=== PATIENT | male | born 1985 | race African-American/Black ===

== ENCOUNTER 2019-01-27 20:03 | Inpatient (IN) | payer MEDICAID, OTHER ==
[~2019-01-27] VITALS: Ht 177.8 cm; Wt 91.6 kg
[~2019-01-27 20:03] MED LIST: ALBU0.0912 IH
--- NOTE | 2019-01-27 20:10 | NUR ---
PATIENT CALLED TO BE TRIAGE NO RESPONSE.
--- NOTE | 2019-01-27 20:15 | NUR ---
SECOND CALL , NO RESPONSE.
[2019-01-27 20:22] VITALS: BP 122/68
--- NOTE | 2019-01-27 20:23 | NUR ---
TO CHAIR E, A/W FOR BED , AMBULATORY
--- NOTE | 2019-01-27 20:25 | NUR ---
PT IS A 33 Y/O MALE WHO PRESENTS TO THE ED C/O SUICIDAL IDEATION. PT STATES THAT SOMEONE HAS BEEN FOLLOWING HIM AROUND X1 MONTH AND HE WANTS TO USE A KNIFE TO STAB AND KILL HIMSELF. PT PLACED ON SI PRECAUTIONS. PT PLACED IN CHAIR AT THIS TIME DUE TO ED CAPACITY. PT WILL GO TO BED 6. PT DENIES CP, SOB, N/V/D. PT AWAKE AND ALERT, RR EVEN/UNLABORED. PT REPOSITIONED FOR COMFORT, PT SITTING IN BED. ER MD DR. ARENAS NOTIFIED. WILL CONTINUE TO MONITOR. ALLERGIC TO [place] DENIES PAST MEDICAL HISTORY
--- NOTE | 2019-01-27 20:54 | NUR ---
PT MOVED TO BED 6. ALL ITEMS REMOVED FROM ROOM. PT PLACED IN A GOWN, SITTER AT BEDSIDE. WARM BLANKET PROVIDED. SECURITY CALLED TO BEDSIDE TO REVIEW ITEMS. PT WAITING TO BE SEEN BY [place].
--- NOTE | 2019-01-27 20:55 | NUR ---
PATIENT MOVED TO ER BED 6.
--- NOTE | 2019-01-27 20:56 | NUR ---
PATIENT REPORT GIVEN TO CHUCK AVINA. TRANSFER OF CARE AT THIS TIME.
--- NOTE | 2019-01-27 21:07 | NUR ---
BELONGINGS SENT DOWN WITH SECURITY.
--- NOTE | 2019-01-27 21:35 | NUR ---
PT AMBULATED TO RR WITH EMT SUPERVISION. URINE SPECIMEN COLLECTED.
--- NOTE | 2019-01-27 22:04 | NUR ---
EMT PERFORMING EKG AT BEDSIDE.
--- NOTE | 2019-01-27 22:09 | NUR ---
LAB AT BEDSIDE.
--- NOTE | 2019-01-27 22:13 | NUR ---
[facility] CALLED TO EVALUATE PATIENT FOR 5150 CRITERIA.
--- NOTE | 2019-01-27 22:24 | NUR ---
[facility] AT BEDSIDE.
[2019-01-27 22:35] LABS: BASOPHILS % (AUTO) 0.5 % (0.0-2.0); EOSINOPHILS # (AUTO) 0.1 K/uL (0-0.4); EOSINOPHILS % (AUTO) 1.5 % (0.0-4.0); HEMATOCRIT 43.3 % (36-52); HEMOGLOBIN 14.4 g/dL (12.0-18.0); LYMPHOCYTES # (AUTO) 1.7 K/uL (2.0-11.5); LYMPHOCYTES % (AUTO) 18.8 % (20.5-51.1); MEAN CORPUSCULAR HEMOGLOBIN 32 pg (27-31); MEAN CORPUSCULAR HGB CONC 33 g/dL (33-37); MEAN CORPUSCULAR VOLUME 96.6 fL (80-94); MONOCYTES # (AUTO) 0.6 K/uL (0.8-1.0); MONOCYTES % (AUTO) 7.3 % (1.7-9.3); NEUTROPHILS # (AUTO) 6.4 K/uL (1.8-7.7); NEUTROPHILS % (AUTO) 71.9 % (42.2-75.2); PLATELET COUNT (AUTO) 257 K/uL (140-450); RED BLOOD CELL COUNT(AUTO) 4.48 MIL/uL (4.20-6.10); RED CELL DISTRIBUTION WIDTH 12.8 % (11.6-13.7); WHITE BLOOD COUNT (AUTO) 8.9 K/uL (4.8-10.8)
[2019-01-27 22:35] LABS: APPEARANCE,URINE CLEAR (CLEAR); BILIRUBIN,URINE 1+ (NEGATIVE); BLOOD, URINE NEGATIVE (NEGATIVE); COLOR,URINE YELLOW (YELLOW); LEUKOCYTE ESTERASE ,URINE TRACE (NEGATIVE); NITRITE, URINE NEGATIVE (NEGATIVE); UGLUCOSE NEGATIVE (NEGATIVE)
[2019-01-27 22:41] LABS: RBC,URINE 0-5 /HPF (0-5)
[2019-01-27 22:42] LABS: ANION GAP 14.2 (8-16); CARBON DIOXIDE 27.6 mmol/L (21-32); CHLORIDE 104 mmol/L (98-107); CREATININE 1.2 mg/dL (0.7-1.3); GFR ARICAN-AMERICAN 89 mL/min (>90); GLUCOSE 110 mg/dL (74-106); POTASSIUM 3.8 mmol/L (3.5-5.1); SODIUM SERUM 142 mmol/L (136-145); UREA NITROGEN, BLOOD 11 mg/dL (7-18)
[2019-01-27 22:47] LABS: BARBITURATE, URINE NEG. ng/ml (NEG <=200); BENZODIAZEPINE, URINE NEG. ng/mL (NEG <=200); CANNABINOID, URINE POS. ng/mL (NEG <=50); COCAINE, URINE NEG. ng/mL (NEG <=300); OPIATE, URINE NEG. ng/mL (NEG <=2000); PHENCYCLIDINE SCREEN,URINE NEG. ng/mL (NEG <=25)
[2019-01-27 22:55] LABS: ALBUMIN 3.3 g/dL (3.4-5.0); ASPARTATE AMINOTRANSFERASE 57 U/L (15-37); THYROID STIMULATING HORMONE 2.19 uIU/mL (0.34-3.74); TOTAL BILIRUBIN 0.5 mg/dL (0.0-1.0)
[2019-01-27 22:56] LABS: ACETAMINOPHEN < 0.5 ug/ml (10-30)
--- NOTE | 2019-01-27 23:30 | NUR ---
OFFERED PT FOOD. PT EATING AT BEDSIDE.
--- NOTE | 2019-01-28 00:30 | NUR ---
PT SLEEPING IN BED WITH VSS. SKIN WARM, DRY. BREATHING EVEN, UNLABORED.
--- NOTE | 2019-01-28 01:08 | NUR ---
PT IS STATING "THEY ARE TRYING TO PUT RAZER BLADES IN MY SANDWICH. THEY HAVE BEEN TRYING TO KILL ME FOR A MONTH NOW." REINFORCED PT HE IS SAFE IN HOSPITAL AND NO ONE IS TRYING TO HURT HIM HERE.
--- NOTE | 2019-01-28 01:11 | NUR ---
PT REQUESTING ANOTHER SANDWICH. INSPECTOR METAL CAN CALLED.
--- NOTE | 2019-01-28 02:54 | NUR ---
PROVIDED PT WITH CHICKEN SANDWICH. PT EATING IN BED WITH SITTER PRESENT.
--- NOTE | 2019-01-28 03:07 | NUR ---
Received intake from [facility], faxed out packet to [facility] Contracted facilities for placement. [facility]/ Ann/ Albina Shultz/ [facility] Lopez/ [facility]/ Travis Acevedo
--- NOTE | 2019-01-28 03:30 | NUR ---
PT SLEEPING IN BED WITH VSS. SKIN WARM, DRY. BREATHING EVEN, UNLABORED.
--- NOTE | 2019-01-28 04:30 | NUR ---
PT SLEEPING IN BED WITH VSS. SKIN WARM, DRY. BREATHING EVEN, UNLABORED.
--- NOTE | 2019-01-28 05:12 | NUR ---
REPORT GIVEN TO TELEPSYCH DOCTOR.
--- NOTE | 2019-01-28 05:30 | NUR ---
TELEPSYCH CONSULT IN PROGRESS.
--- NOTE | 2019-01-28 05:53 | NUR ---
PT SLEEPING IN BED WITH VSS. SKIN WARM, DRY. BREATHING EVEN, UNLABORED.
--- NOTE | 2019-01-28 06:45 | NUR ---
PT SLEEPING IN BED WITH VSS. SKIN WARM, DRY. BREATHING EVEN, UNLABORED.
--- NOTE | 2019-01-28 07:11 | NUR ---
RECEIVED REPORT FROM FABRICE WOODS
[2019-01-28] MEDS ORDERED: ONDANSETRON 4 MG/2 ML VIAL IVP PRN (07:35)
[2019-01-28] MEDS ORDERED: HYDROcodone/APAP 5/325 MG 1 TAB TAB PO PRN (07:35)
[2019-01-28] MEDS ORDERED: ACETAMINOPHEN 325 MG TAB PO PRN (07:35)
[2019-01-28] MEDS ORDERED: ALBUTEROL 0.083% 2.5 MG/3 ML NEBU INH PRN (07:35)
[2019-01-28 08:10] VITALS: BP 124/62
--- NOTE | 2019-01-28 08:10 | NUR ---
Patient will be admitted to care of [facility]. Admited to MED/SURG VIA JANNA W/ VSS. Will go to room 109B. Belongings list completed. Report to FRANKY.
--- NOTE | 2019-01-28 08:10 | NUR ---
REPORT FROM AARON FLEMING NURSE. PATIENT ON MED SURGE WITH STANDARD PRECAUTIONS IN PLACE. PATIENT AAOX4, ON ROOM AIR, NO DISTRESS NOTED, ON 5150 HOLD SINCE PATIENT HAS SUICIDAL IDEATION OF CUTTING HIMSELF. IV ON L AC 20G SALINE LOCK, IV PATENT AND INTACT. PATIENT AMBULATORY, CONTINENT, AND SKIN INTACT. BED IN LOW POSITION, SIDE RAILS X2 UP. SITTER WITH PATIENT
--- NOTE | 2019-01-28 10:00 | NUR ---
PATIENT EATING, NO COMPLAINTS AT THIS TIME
[2019-01-28] MEDS ORDERED: TEMAZEPAM 15 MG CAP PO PRN (10:55)
[2019-01-28] MEDS ORDERED: OLANZapine 5 MG TAB PO SCH (11:00)
--- NOTE | 2019-01-28 12:15 | NUR ---
ADMINISTERED ZYPREXA ONE TIME ORDERED. PATIENT TOLERATED WELL
--- NOTE | 2019-01-28 14:11 | NUR ---
PATIENT SLEEPING AT THIS TIME, ON ROOM AIR, NO DISTRESS NOTED WITH SITTER
--- NOTE | 2019-01-28 15:40 | NUR ---
PATIENT LYING COMFORTABLY IN BED, ON ROOM AIR, NO DISTRESS NOTED. SITTER AT BEDSIDE
[2019-01-28 16:00] VITALS: BP 103/63
--- NOTE | 2019-01-28 17:00 | NUR ---
PATIENT SITTING ON EDGE OF BED, EATING LUNCH
--- NOTE | 2019-01-28 19:15 | NUR ---
RECEIVED BEDSIDE REPORT FROM DAY SHIFT NURSE. PATIENT IS SLEEPING AROUSABLE BY NAME. RESPIRATION EVEN UNLABORED ON ROOM AIR. NO DISTRESS NOTED. SKIN IS WARM AND DRY. IV PATENT AND INTACT. ALL SAFETY MEASURES IN PLACE. PLAN OF CARE WAS DISCUSSED. BED IS AT LOW POSITION. SITTER AT BEDSIDE. WILL CONTINUE TO MONITOR.
--- NOTE | 2019-01-28 19:24 | NUR ---
BEDSIDE REPORT GIVEN TO FABRICE HOFFMAN. PATIENT ENDORSED IN STABLE CONDITION
--- NOTE | 2019-01-28 20:00 | NUR ---
INITIAL ASSESSMENT DONE. VITALS WERE TAKEN. PATIENT IN STABLE CONDITION. NO DISTRESS NOTED. WILL CONTINUE TO MONITOR. SITTER AT BEDSIDE
[2019-01-28] MEDS: LORazepam 2 MG/ML VIAL IVP PRN (20:32)
--- NOTE | 2019-01-28 20:32 | NUR ---
PATIENT IS FEELING ANXIOUS. PRN ATIVAN ADMINISTERED PER ORDER. WILL CONTINUE TO MONITOR.
--- NOTE | 2019-01-28 21:30 | NUR ---
CHECKED PATIENT. PATIENT IN BED RESPIRATION EVEN UNLABORED ON ROOM AIR. NO DISTRESS NOTED. SITTER AT BEDSIDE. WILL CONTINUE TO MONITOR.
--- NOTE | 2019-01-28 22:45 | NUR ---
PATIENT SLEEPING RESPIRATION EVEN UNLABORED ON ROOM AIR. NO DISTRESS NOTED. SITTER AT BEDSIDE. WILL CONTINUE TO MONITOR.
[2019-01-29] VITALS: BP 98/49
--- NOTE | 2019-01-29 | NUR ---
VITALS WERE TAKEN. PATIENT CONDITION STABLE. NO DISTRESS NOTED. WILL CONTINUE TO MONITOR.
--- NOTE | 2019-01-29 02:00 | NUR ---
CHECKED PATIENT. PATIENT SLEEPING RESPIRATION EVEN UNLABORED ON ROOM AIR. NO DISTRESS NOTED. WILL CONTINUE TO MONITOR.
[2019-01-29] MEDS: LORazepam 2 MG/ML VIAL IVP PRN (03:37)
--- NOTE | 2019-01-29 03:45 | NUR ---
PATIENT IV INFILTRATED. D/C IV NO ACTIVE BLEEDING NOTICE. IV CANNULA INTACT. INSERTED NEW IV TO THE LEFT FOREARM 22G AND TOLERATED WELL. WILL CONTINUE TO MONITOR.
--- NOTE | 2019-01-29 04:30 | NUR ---
CHECKED PATIENT. PATIENT SLEEPING RESPIRATION EVEN UNLABORED ON ROOM AIR. NO DISTRESS NOTED. WILL CONTINUE TO MONITOR.
--- NOTE | 2019-01-29 07:20 | NUR ---
ENDORSED PATIENT TO DAY SHIFT NURSE FOR CONTINUITY OF CARE. PATIENT IN STABLE CONDITION.
--- NOTE | 2019-01-29 07:21 | NUR ---
RECEIVED BEDSIDE REPORT FROM BOLOGNA LACER NURSE. PATIENT IS SLEEPING. NO SIGNS OF DISTRESS ON RA. SKIN IS INTACT. IV ON L FA 22G SL. CLEAN, DRY AND INTACT. AMBULATORY. CONTINENT. DX SI, 1:1 SITTER AT BEDSIDE. BED IN LOW POSITION. WILL CONTINUE TO MONITOR THE PATIENT.
[2019-01-29 08:00] VITALS: BP 100/48
[2019-01-29] MEDS ORDERED: OLANZapine 5 MG TAB PO SCH ×2 (09:00→09:45)
--- NOTE | 2019-01-29 09:00 | NUR ---
PATIENT IS SLEEPING. NO SIGNS OF DISTRESS. WILL CONTINUE TO MONITOR THE PATIENT.
[2019-01-29] MEDS ORDERED: ESCITALOPRAM 20 MG TAB PO SCH (09:45)
--- NOTE | 2019-01-29 09:48 | NUR ---
PATIENT HAS BEEN SCREENED AND CATEGORIZED LOW NUTRITION RISK. PATIENT WILL BE SEEN WITHIN 7 DAYS OF ADMISSION. 02/03/[address]
--- NOTE | 2019-01-29 10:11 | NUR ---
ADMINISTERED MEDS. EDUCATED ON MEDS. PATIENT TOLERATED WELL. NO COMPLAINTS AT THIS TIME. WILL CONTINUE TO MONITOR THE PATIENT
--- NOTE | 2019-01-29 12:09 | NUR ---
PATIENT SLEEPING. WILL CONTINUE TO MONITOR THE PATIENT
--- NOTE | 2019-01-29 13:03 | NUR ---
PATIENT IS SLEEPING. NO SIGNS OF DISTRESS. WILL CONTINUE TO MONITOR THE PATIENT
--- NOTE | 2019-01-29 14:09 | NUR ---
PATIENT IS SLEEPING. WILL CONTINUE TO MONITOR 1:1 SITTER AT BEDSIDE
--- NOTE | 2019-01-29 15:40 | NUR ---
PATIENT IS SLEEPING. NO SIGNS OF DISTRESS. 1:1 SITTER AT BEDSIDE
[2019-01-29 16:00] VITALS: BP 109/65
--- NOTE | 2019-01-29 17:46 | NUR ---
PATIENT IS SLEEPING. NO SIGNS OF DISTRESS. WILL CONTINUE TO MONITOR. 1:1 SITTER
--- NOTE | 2019-01-29 19:05 | NUR ---
RECEIVED BEDSIDE REPORT FROM DAY SHIFT NURSE. PATIENT IS AWAKE, ALERT, AND COOPERATIVE. RESPIRATION EVEN UNLABORED ON ROOM AIR. SKIN IS WARM AND DRY. IV PATENT AND INTACT. DENIES PAIN. PLAN OF CARE WAS DISCUSSED. ALL SAFETY MEASURES IN PLACE. BED IS AT LOW POSITION. SITTER AT BEDSIDE. WILL CONTINUE TO MONITOR
--- NOTE | 2019-01-29 19:05 | NUR ---
GAVE BEDSIDE REPORT TO ASSISTANT HEAD CASHIER NURSE. PATIENT ENDORSED IN STABLE CONDITION
--- NOTE | 2019-01-29 20:00 | NUR ---
INITIAL ASSESSMENT DONE. VITALS WERE TAKEN. PATIENT CONDITION STABLE. NO DISTRESS NOTED. WILL CONTINUE TO MONITOR.
[2019-01-29] MEDS: OLANZapine 5 MG TAB PO SCH (20:31)
--- NOTE | 2019-01-29 21:00 | NUR ---
ALL SCHEDULED MEDS WERE GIVEN PER ORDER. NO ASE NOTED. WILL CONTINUE TO MONITOR.
--- NOTE | 2019-01-29 23:00 | NUR ---
CHECKED PATIENT. PATIENT SLEEPING RESPIRATION EVEN UNLABORED ON ROOM AIR. NO DISTRESS NOTED. SITTER AT BEDSIDE. WILL CONTINUE TO MONITOR.
[2019-01-30] VITALS: BP 102/50
--- NOTE | 2019-01-30 | NUR ---
VITALS WERE TAKEN. PATIENT IN STABLE CONDITION. NO DISTRESS NOTED. DENIES PAIN. SITTER AT BEDSIDE. WILL CONTINUE TO MONITOR.
--- NOTE | 2019-01-30 02:00 | NUR ---
SITTER AT BEDSIDE.
--- NOTE | 2019-01-30 02:00 | NUR ---
CHECKED PATIENT. PATIENT SLEEPING RESPIRATION EVEN UNLABORED ON ROOM AIR. NO DISTRESS NOTED. WILL CONTINUE TO MONITOR.
--- NOTE | 2019-01-30 04:00 | NUR ---
CHECKED PATIENT. PATIENT SLEEPING RESPIRATION EVEN UNLABORED ON ROOM AIR. NO DISTRESS NOTED. SITTER AT BEDSIDE WILL CONTINUE TO MONITOR.
--- NOTE | 2019-01-30 07:12 | NUR ---
ENDORSED PATIENT TO DAY SHIFT NURSE FOR CONTINUITY OF CARE. PATIENT IN STABLE CONDITION
--- NOTE | 2019-01-30 07:20 | NUR ---
RECEIVED REPORT FROM SUPERVISOR POULTRY HATCHERY. PT AAOX4, LYING IN BED, AROUSABLE TO NAME. PT STATES "YES" WHEN ASKED IF HE STILL FEELS LIKE HURTING HIMSELF. RESPIRATIONS EVEN AND UNLABORED ON RA. NO C/O PAIN AT THIS TIME. BOWEL SOUNDS ACTIVE, LBM 01/26. IV FOUND ON FLOOR, PT STATES "IT WAS HURTING ME LAST NIGHT". WILL ATTEMPT TO REINSERT IV LATER PRN. SKIN COLOR APPROPRIATE TO ETHNICITY, WARM TO TOUCH, SKIN IS INTACT. REVIEWED POC WITH PT, PT VERBALIZED UNDERSTANDING. WILL CONTINUE TO MONITOR.
[2019-01-30 08:00] VITALS: BP 104/68
[2019-01-30] MEDS: ESCITALOPRAM 20 MG TAB PO SCH (09:52)
[2019-01-30] MEDS: OLANZapine 5 MG TAB PO SCH ×2 (09:53→21:13)
--- NOTE | 2019-01-30 12:15 | NUR ---
PT IS SITTING UP EATING LUNCH AT THIS TIME. NO C/O PAIN, RESPIRATIONS EVEN AND UNLABORED ON RA.
[2019-01-30 16:00] VITALS: BP 109/57
--- NOTE | 2019-01-30 16:00 | NUR ---
PT STILL REPORTS THAT HE WANTS TO HURT HIMSELF SAYING "I WANT TO STAB MYSELF WITH A KNIFE IF I GET A HOLD OF ONE." SPENT TIME WITH PT, REORIENTED AND CLARIFIED QUESTIONS. NO C/O PAIN AT THIS TIME.
--- NOTE | 2019-01-30 16:17 | NUR ---
Called the following facilities with no bed availability: [facility], [facility], s[facility]w [facility], [facility]
--- NOTE | 2019-01-30 17:00 | NUR ---
PT ON ONE-ON-ONE FOR SI. PT IS TAKING A SHOWER AT THIS TIME. WILL CONTINUE TO MONITOR.
--- NOTE | 2019-01-30 19:39 | NUR ---
ENDORSED PT TO MARKET DEVELOPMENT ANALYST NURSE. NO SIGNS OF DISTRESS AT THIS TIME.
--- NOTE | 2019-01-30 19:40 | NUR ---
RECEIVED PT FROM DAY SHIFT NURSE, SITTER ALL TIMES PT IS AAOX3 COOPERATIVE STILL, NOT IV ACCESS INITIAL ASSESSMENT DONE
--- NOTE | 2019-01-30 20:00 | NUR ---
A NEW IV ACCESS INSERTED ON LEFT FA GAUGE # 22
[2019-01-30] MEDS: LORazepam 2 MG/ML VIAL IVP PRN (21:25)
--- NOTE | 2019-01-30 21:25 | NUR ---
PT VERY ANXIOUS MEDIC GIVEN ORDER , AND WILL BE [id number] SITTER AT BED SIDE ALL TIMES
--- NOTE | 2019-01-30 23:00 | NUR ---
PT SLEEPING WELL NOT DISTRESS NOTED SITTER AT SIDE
[2019-01-31] VITALS: BP 105/53
--- NOTE | 2019-01-31 01:59 | NUR ---
PT AWAKE , VOIDING WELL SITTER AT BED SIDE NOT DISTRESS NOTED
--- NOTE | 2019-01-31 03:00 | NUR ---
PT ON CLOSE MONITORING, SLEEPING AT THIS TIME SITTER AT BED SIDE
--- NOTE | 2019-01-31 04:00 | NUR ---
SPONGE BATH GIVEN LINEN CHANGED NOT DISTRESS NOTED SITTER AT BED SIDE
--- NOTE | 2019-01-31 06:19 | NUR ---
PT SLEEPING QUIET NOT DISTRESS SEEN AT THIS TIME SITTER AT BESIDE, PT WILL BE ENDORSED TO DAY SHIFT NURSE FOR CONTINUITY OF CARE
--- NOTE | 2019-01-31 07:22 | NUR ---
RECEIVED BED SIDE REPORT FROM SILK SCREEN PAINTER RN RADHIKA. PT IN STABLE CONDITION, AWAKE/ALERT X4, APPEARS IN NO RESP DISTRESS ON RA, IN NO PAIN. WILL LEFT FOREAARM 22G SALINE LOCK. SKIN INTACT, WILL CONTINUE TO MONITOR, ROOM SAFE.
[2019-01-31 08:00] VITALS: BP 97/53
[2019-01-31] MEDS: OLANZapine 5 MG TAB PO SCH ×2 (09:12→20:42)
[2019-01-31] MEDS: ESCITALOPRAM 20 MG TAB PO SCH (09:13)
--- NOTE | 2019-01-31 09:39 | NUR ---
FAXED 7274 RENEWAL TO [facility] TO LOOK FOR INPATIENT PSYCH FACILITY
--- NOTE | 2019-01-31 14:30 | NUR ---
GAVE BED SIDE REPORT TO FABRICE WHEATLEY. PT RESTING COMFORTABLY, SITTER AT BEDSIDE, ROOM CHECKED AND SAFE, WILL CONTINUE TO MONITOR
--- NOTE | 2019-01-31 14:30 | NUR ---
RECEIVED BEDSIDE REPORT FROM MEKA AVINA FOR CONTINUITY OF CARE. PATIENT IS RESTING ON BED AT THIS TIME. EVEN AND UNLABORED CHEST RISES NOTED. ON RA. NO SIGNS OF DISTRESS NOTED. IV ON LFA 22, CLEAN AND INTACT, SL. SKIN INTACT AND CLEAN. PATIENT IS ABLE TO AMBULATE AND CONTINENT. SAFETY MEASURES IN PLACE. SITTER 1:1 BY BEDSIDE. BED IN LOW POSITION.
--- NOTE | 2019-01-31 15:46 | NUR ---
PATIENT IS RESTING ON BED AT THIS TIME. DENIED OF SUICIDAL IDEATION. NO SIGNS OF DISTRESS NOTED.SAFETY MEASURES IN PLACE. BED IN LOW POSITION AND 1:1 SITTER BY BEDSIDE.
[2019-01-31 16:00] VITALS: BP 111/53
--- NOTE | 2019-01-31 17:25 | NUR ---
PATIENT AWAKE AND SITTING UP ON BED. DENIED OF SUICIDAL IDEATION. NO SIGNS OF DISTRESS NOTES. SAFETY MEASURES IN PLACE. BED IN LOW POSITION AND 1:1 SITTER BY BEDSIDE.
--- NOTE | 2019-01-31 19:15 | NUR ---
ENDORSED PATIENT AT BEDSIDE TO TRANSPORTATION BROKER NURSE FOR CONTINUITY OF CARE. PATIENT AWAKE AND RESTING ON BED AT THIS TIME. 1:1 SITTER BY BEDSIDE. PATIENT IS IN STABLE CONDITION.
--- NOTE | 2019-01-31 19:16 | NUR ---
RECD. RESTING IN BED, AWAKE, A/OX4. RESPIRATION EVEN AND UNLABORED. IV SALINE LOCK AT THE LEFT FOREARM G22, PATENT AND INTACT. STATED HE STILL HAS THOUGHTS OF HURTING HIMSELF BUT IS NOT HEARING VOICES. PLAN OF CARE DISCUSSED. VERBALIZED UNDERSTANDING. WANTS TO HAVE A SLEEPING PILL TONIGHT, WILL MEDICATE ORDERED. DENIES PAIN 010. 1:1 SITTER NEAR DOOR MONITORING PATIENT.
--- NOTE | 2019-01-31 19:16 | NUR ---
Patient's Plan of Care was discussed and reviewed with HAT BINDER: COREY. PT WITH 1:1 SITTER. WILL ROUND FREQUENTLY.
--- NOTE | 2019-01-31 20:00 | NUR ---
RESTING IN BED, NO AGITATION NOTED.
--- NOTE | 2019-01-31 20:41 | NUR ---
DUE MEDICATIONS FOR THE NIGHT GIVEN. NO COMPLAINT OF PAIN 0/10.
[2019-01-31] MEDS ORDERED: diphenhydrAMINE 50 MG CAP PO SCH (21:00)
[2019-02-01] VITALS: BP 115/55
--- NOTE | 2019-02-01 | NUR ---
SLEEPING COMFORTABLY IN BED.
--- NOTE | 2019-02-01 04:00 | NUR ---
AMBULATED TO BR TO VOID X2. SAFETY MAINTAINED.
--- NOTE | 2019-02-01 07:12 | NUR ---
ABLE TO SLEEP WELL. CONDITION REMAIN STABLE. WILL ENDORSE TO AM NURSE FOR CONTINUITY OF CARE.
--- NOTE | 2019-02-01 07:15 | NUR ---
RECEIVED BEDSIDE REPORT FROM SANITIZER NURSE. PATIENT IS AWAKE AND RESTING ON BED AT THIS TIME. RESPIRATION EVEN AND UNLABORED ON RA. DENIED OF SUICIDAL IDEATION AND HEARING VOICE. NO SIGNS OF DISTRESS NOTED. IV ON LFA 22, CLEAN AND DRY, SL. SKIN CLEAN AND DRY. PATIENT IS CONTINENT AND ABLE TO AMBULATE WITH STEADY GAIT. DISCUSSED PLAN OF CARE WITH PATIENT AND PATIENT VERBALIZED UNDERSTANDING.SAFETY MEASURES IN PLACE. BED IN LOW POSITION AND 1:1 SITTER BY BEDSIDE.
[2019-02-01 08:00] VITALS: BP 106/52
[2019-02-01] MEDS: OLANZapine 5 MG TAB PO SCH (09:15)
[2019-02-01] MEDS: ESCITALOPRAM 20 MG TAB PO SCH (09:15)
--- NOTE | 2019-02-01 09:16 | NUR ---
ADMINISTERED MEDS PER MD ORDER, PATIENT TOLERATED WELL. PATIENT IS RESTING ON BED AT THIS TIME. DENIED OF SUICIDAL IDEATION AND HEARING VOICE. NO SIGNS OF DISTRESS NOTED. SAFETY MEASURES IN PLACE. BED IN LOW POSITION AND 1:1 SITTER BY BEDSIDE.
--- NOTE | 2019-02-01 10:09 | NUR ---
COLLECTED URINE SPECIMEN VIA VOID PER ORDER AND DELIVERED IT TO LAB. Addendum: 02/01/19 at 1138 by Lala Keith RN WRONG PATIENT
--- NOTE | 2019-02-01 10:40 | NUR ---
CONTACTED [facility] [phone] AND SPOKE TO ISABELLA, SHE STATED SHE WILL FOLLOW UP.
--- NOTE | 2019-02-01 11:39 | NUR ---
PATIENT AWAKE AND RESTING ON BED AT THIS TIME. RESPIRATION EVEN AND UNLABORED ON RA. PATIENT DENIED SUICIDAL IDEATION AND HEARING VOICE. NO SIGNS OF DISTRESS NOTED. SAFETY MEASURES IN PLACE. BED IN LOW POSITION AND 1:1 SITTER BY BEDSIDE.
--- NOTE | 2019-02-01 12:19 | NUR ---
The following facilities were followed up with and no beds available at this time: [facility], [facility], [facility], [facility], [facility], [place]. [facility] will continue to follow up.
--- NOTE | 2019-02-01 13:15 | NUR ---
PATIENT IS RESTING ON BED AT THIS TIME. DENIED OF SUICIDAL IDEATION AND HEARING VOICE. NO SIGNS OF DISTRESS NOTED. SAFETY MEASURES IN PLACE. BED IN LOW POSITION AND 1:1 SITTER BY BEDSIDE.
--- NOTE | 2019-02-01 15:20 | NUR ---
PATIENT IS AWAKE AND RESTING ON BED AT THIS TIME. DENIED OF SUICIDAL IDEATION AND HEARING VOICE. NO SIGNS OF DISTRESS NOTED. SAFETY MEASURES IN PLACE. BED IN LOW POSITION AND 1:1 SITTER BY BEDSIDE.
[2019-02-01 16:00] VITALS: BP 101/54
--- NOTE | 2019-02-01 17:09 | NUR ---
[facility] s[facility] beds [place] s/w Ruthann no beds [facility] s/w Yud[facility] no beds [facility] s/w Don no beds [facility] s/w Saul lowe faxed for review
--- NOTE | 2019-02-01 17:45 | NUR ---
AWAKE AND SITTING UP ON BED AT THIS TIME. DENIED OF SUICIDAL IDEATION AND HEARING VOICE. NO SIGNS OF DISTRESS NOTED. SAFETY MEASURES IN PLACE. BED IN LOW POSITION AND 1:1 SITTER BY BEDSIDE.
--- NOTE | 2019-02-01 19:15 | NUR ---
ENDORSED PATIENT AT BEDSIDE TO HAIRCUTTER NURSE FOR CONTINUITY OF CARE. PATIENT AWAKE AND IN STABLE CONDITION. 1:1 SITTER AT BEDSIDE.
--- NOTE | 2019-02-01 19:16 | NUR ---
Received endorsement from AM shift RN; patient A/Ox4, able to make needs known, [place]ese speaking, ambulatory. Introduced self. No SOB or distress noted, on room air. No IV site noted. Skin intact. Bed in the lowest position, call light within reach. Initial assessment done. Will continue to monitor.
--- NOTE | 2019-02-01 19:20 | NUR ---
Dr. Garza at bedside consulting patient at this time; patient medically cleared to be discharged to home.
[2019-02-01 19:59] VITALS: BP 137/74
--- NOTE | 2019-02-01 20:29 | NUR ---
Patient discharged to home. ID band removed. Discharge packet signed and copy given to patient. Patient teaching given about follow-up check up. Patient able to ambulate from unit without assistance. Patient stable upon discharge. Addendum: 02/01/19 at 2037 by Tim Lake RN Vitals stable upon discharge.
[2019-02-01] MEDS ORDERED: OLANZapine 5 MG TAB PO SCH (21:00)
== END 2019-02-01 20:29 | disposition home or self-care (01) | DRG 760 ==
LOC: MED 20:03 → MTU 01-28 07:35
PROVIDERS: ADMIT Internal Medicine Pulmonary Disease; ATTEND Internal Medicine Pulmonary Disease
DX: F22 Delusional disorders (principal); F20.9 Schizophrenia, unspecified; F29 Unspecified psychosis not due to a substance or known physiological condition; F32.9 Major depressive disorder, single episode, unspecified; F41.9 Anxiety disorder, unspecified; J45.909 Unspecified asthma, uncomplicated; F12.99 Cannabis use, unspecified with unspecified cannabis-induced disorder; F15.99 Other stimulant use, unspecified with unspecified stimulant-induced disorder
CPT/HCPCS: 36415; 80053; 80305; 81001; 84443; 85025; 87081; 87086; 99285; G0480; G0482; J2060; Q0163

== ENCOUNTER 2019-08-04 17:57 | Inpatient (IN) | payer OTHER ==
[~2019-08-04] VITALS: Ht 177.8 cm; Wt 90.7 kg
[2019-08-04 18:02] VITALS: BP 136/59
--- NOTE | 2019-08-04 18:17 | NUR ---
PT AMBULATED TO ED BED 5. ILYA SCIENCE PROFESSOR AND MADE AWARE OF PT STATUS
--- NOTE | 2019-08-04 18:26 | NUR ---
SECURITY CALLED TO BEDSIDE, ALL BELONGINGS INVENTORIED AND PLACED IN A BELONGINGS BAG AND GIVEN TO ANTOINETTE WITH SECURITY. COPY OF BELONGINGS LIST GIVEN TO .
--- NOTE | 2019-08-04 18:32 | NUR ---
EMT AT BEDSIDE
--- NOTE | 2019-08-04 18:32 | NUR ---
BARREL RAISER AT BEDSIDE FOR BLOOD DRAW
--- NOTE | 2019-08-04 18:33 | NUR ---
PT STATED "THERE ARE PEOPLE AFTER ME TRYING TO KILL ME, THE FB IS TRYING TO KILL ME, I'M RUNNING FROM THEM, BUT I WANT TO LIVE BUT I DON'T KNOW WHY I SHOULD LIVE, THEY'RE AFTER ME." PT WITH EXCESSIVE SPEECH AND TALKING TO SELF. DENIES ATTEMPTING TO PHYSICAL HURT SELF. PT EPISODE OF VISUAL HALLUCINATION AT THIS TIME. ALSO STATES "CLOSE THE CURTAINS, I DON'T WANT TO SEE WHITE PEOPLE, THEY'RE ALL IN IT TOGETHER TRYING TO KILL ME". PT STATES HE LIVES AT HOME/HOUSE WITH MOTHER. PMH; SCHIZOPRENIA, PARANIOD, DIDN'T TAKE ZYPREXA FOR 1 MONTH RX-ZYPREXA, BENADRYL Addendum: 08/04/19 at 1840 by BRENT DENIES DRUGS/ETOH USE. UNABLE TO VERBALIZE SPECIFIC PLANS TO HURT SELF
[2019-08-04 18:40] LABS: BASOPHILS # (AUTO) 0.1 K/uL (0.00-0.22); BASOPHILS % (AUTO) 0.7 % (0.0-2.0); EOSINOPHILS # (AUTO) 0.2 K/uL (0-0.4); EOSINOPHILS % (AUTO) 2.8 % (0.0-4.0); HEMATOCRIT 43.9 % (36-52); HEMOGLOBIN 14.5 g/dL (12.0-18.0); LYMPHOCYTES # (AUTO) 1.5 K/uL (2.0-11.5); LYMPHOCYTES % (AUTO) 18.3 % (20.5-51.1); MEAN CORPUSCULAR HEMOGLOBIN 32 pg (27-31); MEAN CORPUSCULAR HGB CONC 33 g/dL (33-37); MEAN CORPUSCULAR VOLUME 96.5 fL (80-94); MONOCYTES # (AUTO) 0.6 K/uL (0.8-1.0); MONOCYTES % (AUTO) 6.9 % (1.7-9.3); NEUTROPHILS % (AUTO) 71.3 % (42.2-75.2); PLATELET COUNT (AUTO) 234 K/uL (140-450); RED BLOOD CELL COUNT(AUTO) 4.55 MIL/uL (4.20-6.10); RED CELL DISTRIBUTION WIDTH 12.5 % (11.6-13.7); WHITE BLOOD COUNT (AUTO) 8.4 K/uL (4.8-10.8)
--- NOTE | 2019-08-04 18:44 | NUR ---
ASKED PT TO PROVIDE URINE SAMPLE
--- NOTE | 2019-08-04 18:54 | NUR ---
PT RESTING IN BED, WITH PERIODS OF RESTLESSNESS & MUMBLING TO SELF.
[2019-08-04 18:57] LABS: ALBUMIN 3.5 g/dL (3.4-5.0); ANION GAP 13.5 (8-16); ASPARTATE AMINOTRANSFERASE 68 U/L (15-37); CARBON DIOXIDE 27.8 mmol/L (21-32); CHLORIDE 104 mmol/L (98-107); CREATININE 1.3 mg/dL (0.7-1.3); GFR ARICAN-AMERICAN 80 mL/min (>90); GLUCOSE 150 mg/dL (74-106); POTASSIUM 3.3 mmol/L (3.5-5.1); SODIUM SERUM 142 mmol/L (136-145); TOTAL BILIRUBIN 0.4 mg/dL (0.0-1.0); UREA NITROGEN, BLOOD 6 mg/dL (7-18)
[2019-08-04 19:00] LABS: ACETAMINOPHEN < 0.5 ug/ml (10-30); SALICYLATE < 2.8 mg/dL (2.8-20.0)
--- NOTE | 2019-08-04 19:41 | NUR ---
PT RESTING IN BED, RESPIRATIONS EVEN AND UNLABORED, NO SIGNS OF DISTRESS.
--- NOTE | 2019-08-04 20:19 | NUR ---
CALLED & ASKED LAB TO [facility]NER URINE SAMPLES
--- NOTE | 2019-08-04 20:20 | NUR ---
PROVIDED PT WITH SANDWICH AND JUICE
[2019-08-04] MEDS ORDERED: POTASSIUM CHLORIDE 10 MEQ TABER PO ONE (20:30)
--- NOTE | 2019-08-04 20:53 | NUR ---
LAB CONFIRMED THEY HAVE URINE SAMPLE AND WILL PROCESS UDS
[2019-08-04 21:21] LABS: BARBITURATE, URINE NEG. ng/ml (NEG <=200); BENZODIAZEPINE, URINE NEG. ng/mL (NEG <=200); CANNABINOID, URINE POS. ng/mL (NEG <=50); COCAINE, URINE NEG. ng/mL (NEG <=300); OPIATE, URINE NEG. ng/mL (NEG <=2000); PHENCYCLIDINE SCREEN,URINE NEG. ng/mL (NEG <=25)
--- NOTE | 2019-08-04 22:15 | NUR ---
PT SPEAKING WITH TELEPSYCH MD BARBOZA AT THIS TIME.
--- NOTE | 2019-08-04 23:31 | NUR ---
PT RESTING IN BED, RESPIRATIONS EVEN AND UNLABORED
--- NOTE | 2019-08-05 01:20 | NUR ---
REPORT RECIEVED FROM FABRICE ALVAREZ. ASSUMED CARE AT THIS TIME. PT ASLEEP AT THIS TIME. VISIBLE CHEST RISE AND FALL NOTED. 1:1 MONITORING AT BEDSIDE. SAFETY PRECAUTIONS IN PLACE. WILL CONTINUE TO MONITOR.
--- NOTE | 2019-08-05 01:30 | NUR ---
Spoke with the call center for telepsych requesting a call from the doctor for clarification on the hold. will await call back.
--- NOTE | 2019-08-05 02:00 | NUR ---
still awaiting call, called mayra michael to write recommended 5150 hold for GD.
--- NOTE | 2019-08-05 02:00 | NUR ---
PROVIDED PT WITH MEAL, JUICE, AND BLANKET. ALL NEEDS MET AT THIS TIME.
--- NOTE | 2019-08-05 02:30 | NUR ---
RECIEVED TELEPSYCH REPORT BY FAX. RECOMMENDING 5724 HOLD FOR GRAVELY DISABLED.
--- NOTE | 2019-08-05 02:55 | NUR ---
CALLED [facility] TO WRITE 9930 HOLD. OFFICER TO BE SENT OUT WHEN AVAILABLE
--- NOTE | 2019-08-05 03:00 | NUR ---
[facility] AT BEDSIDE.
--- NOTE | 2019-08-05 03:02 | NUR ---
S/W OFFICER EDUARD [place] WHO STATED HE WOULDNT BE ABLE TO WRITE A 5150 HOLD BECAUSE PT IS CURRENTLY DENYING SI/HI.
--- NOTE | 2019-08-05 03:10 | NUR ---
PT HEARD SCREAMING PROFANITY AND BEING VERBALLY AGGRESSIVE, PT STATES "FUCK THE POLICE. I DONT WANT TO TALK TO THEM. I DONT NEED TO BE HERE. FUCK ALL OF YOU. I WILL FIGHT ALL OF YOU." PT INFORMED THAT THIS BEHAVIOR IS NOT ACCEPTABLE AND HE WAS TO CALM DOWN. PT QUIETED DOWN.
--- NOTE | 2019-08-05 03:56 | NUR ---
PT AMBULATED TO RESTROOM, STEADY GAIT.
--- NOTE | 2019-08-05 04:25 | NUR ---
spoke with tele psych doctor regarding clarification on hold recommendation, stated he would send over an addendum.
--- NOTE | 2019-08-05 04:38 | NUR ---
[facility] called to write for GD 5150 hold.
--- NOTE | 2019-08-05 04:45 | NUR ---
PT SEEN WITH EYES CLOSED. VISIBLE CHEST RISE AND FALL NOTED. SAFETY PRECAUTIONS IN PLACE. WILL CONTINUE TO MONITOR.
--- NOTE | 2019-08-05 05:30 | NUR ---
OFFICER EDUARD [place]ES AT BEDSIDE.
--- NOTE | 2019-08-05 05:36 | NUR ---
[address]
--- NOTE | 2019-08-05 06:40 | NUR ---
TAKEN TO FLOOR IN WHEELCHAIR BY RN.
--- NOTE | 2019-08-05 06:47 | NUR ---
Patient will be admitted to care of DR. LOPEZ. Admited to [facility]. Will go to room 109B Belongings list completed. Report to FABRICE STERN. TRANSFER OF CARE AT THIS TIME
[2019-08-05] MEDS ORDERED: ACETAMINOPHEN 650 MG SUPP RC PRN (06:55)
[2019-08-05] MEDS ORDERED: HYDROcodone/APAP 5/325 MG 1 TAB TAB PO PRN ×2 (06:55)
[2019-08-05] MEDS ORDERED: LORazepam 2 MG/ML VIAL IVP PRN (06:55)
[2019-08-05] MEDS ORDERED: BISACODYL 10 MG SUPP RC PRN (06:55)
[2019-08-05] MEDS ORDERED: MORPHINE SULFATE 2 MG/ML SYR IVP PRN (06:55)
[2019-08-05] MEDS ORDERED: ZOLPIDEM 5 MG TAB PO PRN (06:55)
[2019-08-05] MEDS ORDERED: ALUMINUM HYD/MAG/SIMETHICONE 30 ML UDC PO PRN (06:55)
[2019-08-05] MEDS ORDERED: ALBUTEROL 0.083% 2.5 MG/3 ML NEBU INH PRN (06:55)
[2019-08-05] MEDS ORDERED: MAGNESIUM OXIDE 400 MG TAB PO PRN (06:55)
[2019-08-05] MEDS ORDERED: POTASSIUM CHLORIDE 10 MEQ TABER PO PRN (06:55)
[2019-08-05] MEDS ORDERED: SODIUM PHOSPHATE 118 ML ENEM RC PRN (06:55)
[2019-08-05] MEDS ORDERED: diphenhydrAMINE 50 MG/ML VIAL IVP PRN (06:55)
[2019-08-05] MEDS ORDERED: DOCUSATE SODIUM 250 MG GELCAP PO PRN (06:55)
[2019-08-05] MEDS ORDERED: IPRATROPIUM 0.02% 0.5 MG/2.5 ML NEBU INH PRN (06:55)
[2019-08-05] MEDS ORDERED: cloNIDine 0.1 MG TAB PO PRN (06:55)
[2019-08-05] MEDS ORDERED: guaiFENesin DM 200/20 MG-10 ML 10 ML UDC PO PRN (06:55)
[2019-08-05] MEDS ORDERED: ACETAMINOPHEN 325 MG TAB PO PRN (06:55)
[2019-08-05] MEDS ORDERED: MAG SULF 2000 MG/WATER PREMIX 50 ML IV PRN (06:55)
[2019-08-05] MEDS ORDERED: ONDANSETRON 4 MG/2 ML VIAL IVP PRN (06:55)
--- NOTE | 2019-08-05 07:16 | NUR ---
RECEIVED REPORT FROM CIRCULAR RIPSAW OPERATOR NURSE. ASSESS PT'S V/S. PT IS STABLE. NO SIGNS OF DISTRESS. MRSA SWAB DONE. PT HAS SALINE LOCK ON LEFT ARM. SITTER ON BEDSIDE. BED ON LOW, SIDERAILS UP. WILL CONTINUE TO MONITOR
[2019-08-05 08:00] VITALS: BP 101/41
--- NOTE | 2019-08-05 10:00 | NUR ---
Spoke to Dr Garza on the phone and confirmed he will be seeing pt today for psych eval.
--- NOTE | 2019-08-05 12:05 | NUR ---
FREQUENT ROUNDINGS DONE. PT. IS SLEEPING, NO SIGNS OF DISTRESS. SITTER AT BEDSIDE. WILL CONTINUE TO MONITOR
--- NOTE | 2019-08-05 12:18 | NUR ---
PATIENT HAS BEEN SCREENED AND CATEGORIZED LOW NUTRITION RISK. PATIENT WILL BE SEEN WITHIN 7 DAYS OF ADMISSION. 08/12/2019 VIRGINIE PRECIADO MBA, RD
--- NOTE | 2019-08-05 15:00 | NUR ---
FREQUENT ROUNDING DONE. PT IS STABLE. SITTER AT BEDSIDE. PT HAS NO SIGNS OF DISTRESS. WILL CONTINUE TO MONITOR
[2019-08-05 16:00] VITALS: BP 114/60
--- NOTE | 2019-08-05 19:00 | NUR ---
REPORT GIVEN TO ENGRAVER STEEL PLATE NURSE FOR CONTINUITY OF CARE. PT IS STABLE, NO SIGNS OF DISTRESS.
--- NOTE | 2019-08-05 19:01 | NUR ---
RECD. RESTING IN BED, SLEEPING BUT EASILY AROUSABLE. RESPIRATION EVEN AND UNLABORED. IV SALINE LOCK AT THE LEFT AC G20, PATENT AND INTACT. BED IN THE LOWEST POSITION, SIDE RAILS UP. ON 1:1 SITTER TO ENSURE SAFETY. WILL CONTINUE TO MONITOR PATIENT BEING THE NURSE SITTER FOR THIS SHIFT.
--- NOTE | 2019-08-05 20:00 | NUR ---
WAKEN UP, A/OX4. INQUIRED IF HE STILL HAS THOUGHTS OF HURTING SELF, STATED YES. NODS HEAD WHEN ASKED IF HE IS HEARING VOICES. WENT BACK TO SLEEP.
--- NOTE | 2019-08-05 21:30 | NUR ---
SANDWICH REQUESTED GIVEN, WENT BACK TO SLEEP AFTER EATING.
--- NOTE | 2019-08-05 23:00 | NUR ---
STILL SLEEPING COMFORTABLY IN BED.
[2019-08-06] VITALS: BP 111/63
--- NOTE | 2019-08-06 01:00 | NUR ---
AWAKE, TALKING TO SELF, SITS ON THE BED AND WENT TO BR TO VOID. STATED HE DOES NOT LIKE HIS BED. WANTS TO TRANSFER TO THE OTHER BED, EXPLAINED THAT BED IS FOR ANOTHER PATIENT. BEDDINGS CHANGED REQUESTED, NOTED SOME LINENS WET, STATED I SWEAT A LOT. STILL TELLING THAT THE POLICE IS AFTER HIM AND WANTS TO HARM HIM.
--- NOTE | 2019-08-06 01:30 | NUR ---
NO MORE IV LINE, WHEN ASKED WHERE IS HIS IV SALINE LOCK STATED "I HAVE IT BEFORE BUT IT BOTHERS ME AND I DON'T KNOW WHERE IS IT NOW." REFUSED FOR ANOTHER IV LINE TO BE INSERTED. WENT BACK TO SLEEP.
--- NOTE | 2019-08-06 03:30 | NUR ---
STILL SLEEPING COMFORTABLY IN BED.
--- NOTE | 2019-08-06 06:00 | NUR ---
AWAKE, TALKING TO SELF. WENT BACK TO SLEEP AFTER FEW MINUTES. NO AGITATION NOTED.
--- NOTE | 2019-08-06 07:30 | NUR ---
CONDITION REMAIN STABLE. NEW SITTER MONITORING PATIENT NEAR DOOR. ENDORSED TO AM SHIFT NURSE FOR CONTINUITY OF CARE.
--- NOTE | 2019-08-06 07:31 | NUR ---
RECEIVED PATIENT FROM TRACTOR ENGINE MECHANIC COREY ROGER. PATIENT IS SLEEPING AT THIS TIME. NO SIGNS OF DISTRESS NOTED. RESPIRATIONS EVEN AND UNLABORED, ROOM AIR. VISIBLE CHEST RISE NOTED. PATIENT HAS NO IV. SKIN WARM AND DRY. PATIEN IS CONTINENT. AMBULATORY. BED IN LOW POSITION. CALL LIGHT IS WITHIN REACH. WILL CONTINUE TO MONITOR
--- NOTE | 2019-08-06 08:00 | NUR ---
PATIENT REFUSED VITAL SIGN CHECK. RESPIRATIONS 18, UNLABORED. ROOM AIR.
[2019-08-06] MEDS: OLANZapine 5 MG TAB PO SCH ×2 (09:05→20:57)
--- NOTE | 2019-08-06 09:05 | NUR ---
GIVEN ZYPREXA. EXPLAINED TO PATIENT MED INDICATION. PATIENT VERBALIZED UNDERSTANDING. WILL CONTINUE TO MONITOR
--- NOTE | 2019-08-06 10:26 | NUR ---
PATIENT IS SLEEPING AT THIS TIME. NO SIGNS OF DISTRESS NOTED. BED IN LOW POSITION. CALL LIGHT IS WITHIN REACH. WILL CONTINUE TO MONITOR
--- NOTE | 2019-08-06 11:21 | NUR ---
PATIENT IS SLEEPING BUT OPEN EYES WHEN NAME IS CALLED. WILL CONTINUE TO MONITOR. SITTER 1:[address]
--- NOTE | 2019-08-06 12:46 | NUR ---
PATIENT IS EATING LUNCH AT THIS TIME. NO SIGNS OF DISTRESS NOTED. BED IN LOW POSITION. CALL LIGHT IS WITHIN REACH. WILL CONTINUE TO MONITOR
--- NOTE | 2019-08-06 14:15 | NUR ---
PATIENT IS AWAKE, LAYING IN BED. NO SIGNS OF DISTRESS. DENIES PAIN. DENIES HALLUCINATIONS. WILL CONTINUE TO MONITOR
--- NOTE | 2019-08-06 15:54 | NUR ---
PATIENT IS SAYING THAT "THIS IS HIS TOWN" .PATIENT IS BACK TO SLEEPING NOW.
[2019-08-06 16:00] VITALS: BP 116/52
--- NOTE | 2019-08-06 16:14 | NUR ---
MADE ROUNDS. PATIENT IS SLEEPING AT THIS TIME BUT OPEN EYES WHEN NAME IS CALLED. PATIENT DENIES PAIN. BED IN LOW POSITION. CALL LIGHT IS WITHIN REACH. WILL CONTINUE TO MONITOR
--- NOTE | 2019-08-06 19:01 | NUR ---
ENDORSED PATIENT TO FUNERAL DIRECTOR NURSE FOR CONTINUITY OF CARE. PATIENT IS IN STABLE CONDITION.
--- NOTE | 2019-08-06 19:02 | NUR ---
RECD. RESTING IN BED, AWAKE, A/OX4. RESPIRATION EVEN AND UNLABORED. WHEN INQUIRED IF HE STILL HAS THOUGHTS OF HURTING SELF AND HEARING VOICES STATED YES. WANTS TO SHOWER, WILL INFORM CHARGE NURSE. PLAN OF CARE FOR THE SHIFT DISCUSSED. VERBALIZED UNDERSTANDING. DENIES PAIN 0/10. ON 1:1 SITTER.
--- NOTE | 2019-08-06 20:20 | NUR ---
WENT TO SHOWER, HAND TOWELS WHEN DONE. BACK TO ROOM AFTER 15 MINUTES.
--- NOTE | 2019-08-06 20:40 | NUR ---
WENT TO BR, STAGED HE HAD A LARGE BM.
--- NOTE | 2019-08-06 20:57 | NUR ---
RESTING IN BED, DUE PO MEDICATION GIVEN.
--- NOTE | 2019-08-06 21:45 | NUR ---
SLEEPING SOUNDLY IN BED.
--- NOTE | 2019-08-06 23:10 | NUR ---
STATED HE IS JUST LAYING IN BED, BUT UNABLE TO SLEEP. MEDICATED WITH AMBIEN 5 MG. PO.
[2019-08-07] VITALS: BP 101/56
--- NOTE | 2019-08-07 00:10 | NUR ---
SLEEPING COMFORTABLY IN BED.
--- NOTE | 2019-08-07 01:34 | NUR ---
Patient's Plan of Care was discussed and reviewed with BUILD AND DEPLOYMENT ENGINEER: COREY CARDENAS
--- NOTE | 2019-08-07 03:00 | NUR ---
AMBULATED TO TO VOID, BACK TO BED AFTER VOIDING AND SLEEP AGAIN.
--- NOTE | 2019-08-07 06:00 | NUR ---
ABLE TO SLEPT WELL. NO SUICIDAL BEHAVIOR NOTED. NEW SITTER MONITORING PATIENT NEAR DOOR.
--- NOTE | 2019-08-07 07:00 | NUR ---
CONDITION REMAIN STABLE. ENDORSED TO AM SHIFT NURSE FOR CONTINUITY OF CARE, WITH 1:1 SITTER MONITORING PATIENT.
--- NOTE | 2019-08-07 07:01 | NUR ---
RECEIVE REPORT FROM NIGHT NURSE, PT IS STABLE, PT IS ASLEEP, RESPIRATIONS ARE EVEN AND UNLABORED, PT HAS A 1:1 SITTER, SAFETY MEASURES IN PLACE.
[2019-08-07 08:00] VITALS: BP 118/61
[2019-08-07] MEDS: OLANZapine 5 MG TAB PO SCH ×2 (09:19→20:41)
--- NOTE | 2019-08-07 09:21 | NUR ---
GAVE ORDERED MEDICATIONS, PT TOLERATED WELL, PT IS STABLE, PT STATES IS STILL HEARING VOICES.
--- NOTE | 2019-08-07 12:05 | NUR ---
PT IS ASLEEP IN BED, RESPIRATIONS ARE EVEN AND UNLABORED, 1:1 SITTER AT BEDSIDE
--- NOTE | 2019-08-07 15:00 | NUR ---
PT IN ROOM RESTING, PT IS STABLE, RESPIRATION ARE EVEN AND UNLABORED ON ROOM AIR, 1:1 SITTER OUTSIDE DOOR.
[2019-08-07 16:00] VITALS: BP 106/47
--- NOTE | 2019-08-07 17:20 | NUR ---
ANALYTICAL STRATEGIST assessment/discharge plan High Risk DC Screen Yes Name: Gen Petty Home Relationship: father Pre-Admission Living Arrangements: Lives with Other Other: mother: Jinny Tentative Discharge Plan Summary: Patient is a 34 year old male with a history of schizophrenia and paranoia. I met with patient at bedside. Patient was uncooperative and became agitated. Patient stated prior to hospital admission he was living with his mother Jinny and he reported she does not want him to return home. He did not want to provide me with details regarding this. He does not know name of pcp and reported he has not seen pcp in a long time. He told me his monthly income is $975. His psychiatrist is ([place], [place]). He refused to provide additional information and no longer wanted to speak with me. He was calm at beginning but then later became agitated. Special Education Classroom Aide and/or Founder Chairman And Chief Creative Officer will follow up as needed. Signature: DALY Christiansen Date: Aug 07, 2019
--- NOTE | 2019-08-07 17:51 | NUR ---
PT RESTING IN BED, PT IS STABLE, NO SIGNS OF DISTRESS NOTED
--- NOTE | 2019-08-07 19:10 | NUR ---
GAVE REPORT TO NIGHT NURSE, PT IS STABLE
--- NOTE | 2019-08-07 19:11 | NUR ---
RECEIVE BEDSIDE REPORT FROM DAY SHIFT NURSE, PT IS AWAKE, ASKING FOR SNACK. GIVEN JUICE AND CRACKER. NO SOB OR ANY RESPIRATORY DISTRESS NOTED. BREATHING EVEN AND UNLABORED, PT HAS A 1:1 SITTER, SAFETY MEASURES IN PLACE.
--- NOTE | 2019-08-07 20:41 | NUR ---
GIVEN OLANZAPINE MD ORDERED. PT TOLERATED WELL. WILL CONTINUE TO MONITOR.
--- NOTE | 2019-08-07 22:15 | NUR ---
PT SLEEPING IN BED COMFORTABLY. NO ACUTE DISTRESS NOTED.
[2019-08-08] VITALS: BP 126/78
--- NOTE | 2019-08-08 | NUR ---
VS CHECKED, WITHIN PT'S BASELINE. WILL CONTINUE TO MONITOR.
--- NOTE | 2019-08-08 02:27 | NUR ---
PT SLEEPING IN BED COMFORTABLY. NO ACUTE DISTRESS NOTED.
--- NOTE | 2019-08-08 04:45 | NUR ---
PT SLEEPING IN BED COMFORTABLY. NO ACUTE DISTRESS NOTED.
--- NOTE | 2019-08-08 06:40 | NUR ---
PT SLEEPING IN BED COMFORTABLY. NO ACUTE DISTRESS NOTED. WILL ENDORSE PT TO DAY SHIFT NURSE.
--- NOTE | 2019-08-08 07:23 | NUR ---
REPORT RECEIVED FROM BORING MACHINE OPERATOR NURSE FOR CONTINUATION OF CARE. PATIENT IS RESTING IN BED, AAOX4, RESPONDS TO VERBAL COMMANDS. IV IS IN LEFT HAND, PICC LINE ORDERED AND TO BE GIVEN TODAY FOR HX OF CONSECUTIVE IV PLACEMENT FAILURE AND HIGH DEMAND FOR IV ANTIBIOTICS. CONSENT TO BE SIGNED AND PROCEDURE TO BE EXPLAINED BY RESIDENT PHYSICIAN. CALL LIGHT ON AND WITHIN REACH. WILL CONTINUE TO MONITOR. Addendum: 08/08/19 at 0732 by Milo Zimmerman RN WRONG PATIENT REPORT. PATIENT IS RESTING IN BED CALL LIGHT ON AND WITHIN REACH. PATIENT IS ON A 5150 HOLD FOR DANGER TO SELF. MEDICALLY STABLE. SLEEPING IN BED, ENCOURAGED TO COME TO STAFF IF FEELINGS OF SI PERSIST OR WORSEN. WILL CONTINUE TO MONITOR.
--- NOTE | 2019-08-08 09:56 | NUR ---
DAXA NOTES: CONTACTED [facility] AT [phone], ABLE TO SPEAK TO ILYA. SHE STATED PATIENT IS NOT ON THEIR BOARD FOR PLACEMENT. SHE REQUESTED TO FAX OVER CLINICALS AND 5150 HOLD. Addendum: 08/08/19 at 1056 by Malika Wellington CM CONTACTED [facility] AGAIN, ABLE TO SPEAK TO KIMBERLY. INFORMED HER THAT ED DID THE TELEPSYCH CALL. SHE STATED THAT THEY DO NOT HAVE THE COPY OF THE 5150 HOLD. I TOLD HER THAT I WILL FAXING IT OVER. CLINICALS AND 5150 HOLD FAXED TO [phone]. Addendum: 08/08/19 at 1130 by Malika Wellington CM RECEIVED A CALL FROM KIMBERLY FROM [facility], INFORMING ME THAT THE HOLD WILL TODAY HOWEVER LOOKING AT THE NOTES IT SEEMS LIKE THE HOLD HAD EARLY THIS MORNING. CHARGE NURSE PITTMAN MADE AWARE. Addendum: 08/08/19 at 1155 by Malika Wellington CM PER CHARGE NURSE PITTMAN, SHE CONTACTED DR. SOTO AND HE STATED THAT HOLD WILL NOT UNTIL TOMORROW 08/08/2019. A WRITTEN HOLD DATED 08/06/[address] SOTO FAXED TO [employer]. KIMBERLY OF [facility] MADE AWARE. Addendum: 08/09/19 at 1212 by Malika Wellington CM RECEIVED A CALL FROM KIMBERLY FROM [employer] TO GET UPDATE ON THE PATIENT. INFORMED HER THAT PATIENT IS OFF 5150 HOLD AND WILL BE DISCHARGING TODAY.
--- NOTE | 2019-08-08 10:00 | NUR ---
PATIENT IS RESTING IN BED, SELECTIVELY MUTE WITH STAFF, FOCUSED ON DISCHARGE, AWAITING PLACEMENT FOR INPATIENT PSYCHIATRIC FACILITY. WILL CONTINUE TO MONITOR. EDUCATED ON THE IMPORTANCE OF COMING TO STAFF IF THOUGHTS OR FEELINGS OF SI CONTINUE OR WORSEN.
[2019-08-08] MEDS: OLANZapine 5 MG TAB PO SCH ×2 (11:10→21:31)
--- NOTE | 2019-08-08 11:13 | NUR ---
Packet received for placement but 5150 earlier this am. S/W DAXA Daly. She will update on new eval and new 5150 if patient still meets criteria.
--- NOTE | 2019-08-08 11:45 | NUR ---
Called the following facilities [facility] s/w Sonya, no beds [facility] s/w Ruthann, packet fax for transfer list [facility] s/w Josy, packet fax for wait list [facility] s/w Ankita. Packet fax for review
--- NOTE | 2019-08-08 11:55 | NUR ---
Called the following facilities [facility] s/w Saul, packet fax for wait list [facility] s/w Francia, packet fax for wait list [facility] s/w [place] yu beds
--- NOTE | 2019-08-08 12:30 | NUR ---
JAIME CONTINUES TO BE DISCHARGE FOCUS AND VERBALIZES RESTLESSNESS. HE DISPLAYS IMPULSE CONTROL. HE DENIES SUICIDAL IDEATION. HE REMAINS SELECTIVELY MUTE WITH STAFF. IN MEDICALLY STABLE CONDITION, ON 1:1 WITH SITTER INSIDE THE ROOM AND PATIENT IN VIEW. REVIEW PLAN OF CARE WITH JAIME AND HE VERBALIZED UNDERSTANDING. CASE MANAGEMENT CONTINUES TO SEARCH FOR A BED IN AN INPATIENT PSYCHIATRIC FACILITY. WILL CONTINUE TO MONITOR.
--- NOTE | 2019-08-08 15:00 | NUR ---
JAIME TOLERATED LUNCH WELL, CONTINUES TO SLEEP OR APPEAR SLEEPING, OBSERVED CHEST RISE AND FALL, 1:1 SITTER REMAINS IN APPROPRIATE DISTANCE FROM PATIENT FOR PATIENT SAFETY. DENIES PAIN AT THIS TIME. EDUCATED ON THE IMPORTANCE OF COMING TO STAFF IF FEELING OF SAFETY FEELS JEPORDIZED. WILL CONTINUE TO MONITOR.
--- NOTE | 2019-08-08 17:00 | NUR ---
PATIENT REMAINS WITHDRAWN AND ISOLATIVE, OBSERVED CHEST RISE AND FALL. VITAL SIGNS REFUSED. CASE MANAGEMENT SEARCHING FOR PLACEMENT AT INPATIENT PSYCHIATRIC FACILITY. PATIENT REFUSED TO CONTACT FAMILY OR FRIENDS. WILL CONTINUE TO MONITOR.
--- NOTE | 2019-08-08 19:35 | NUR ---
RECEIVED FROM AM RN IN BED SLEEPING. REFUSED TO TALK AT THIS TIME. WITH SITTER 1:1 RT DX. OF 5150 /GRAVELY DISABLED. NEEDS WILL BE ANTICIPATED AND WILL BE MET.
--- NOTE | 2019-08-08 19:36 | NUR ---
BEDSIDE SHIFT REPORT GIVEN TO ONCOMING IRON HANDLER NURSE FOR CONTINUITY OF CARE.
--- NOTE | 2019-08-09 00:30 | NUR ---
PT. BEEN SLEEPING WELL. NO COMPLAINTS DONE. GOES RESTROOM INDEPENDENTLY. ROM X 4. SITTER 1:1.
--- NOTE | 2019-08-09 05:24 | NUR ---
SLEPT WELL THIS SHIFT. NO COMPLAINTS DONE. SITTER 1:1 .
--- NOTE | 2019-08-09 08:00 | NUR ---
Received patient with one to one sitter at bedside. Patient is awake and alert, oriented x 4. No co pain. Answers questions appropriately. Arnulfo Valdez RN
[2019-08-09] MEDS: OLANZapine 5 MG TAB PO SCH (10:01)
--- NOTE | 2019-08-09 10:43 | NUR ---
S/W DAXA Castano Patient's 5150 has been dc'd and will be going home
[2019-08-09] MEDS ORDERED: OLAN5TAB30 PO (10:57)
--- NOTE | 2019-08-09 11:22 | NUR ---
TALKING TO PATIENT HE SAID HE HAS NO PLAN OF COMMITTING SUICIDE, PATIENT ALERT, AWAKE, ORIENTED. NO DISTRESS NOTED, DR. LOPEZ MADE AWARE POTASSIUM 3.3 BUT WAS GIVEN POTASSIUM ON 08/05 NO ORDER MADE, PATIENT REQUESTING TO TAKE SHOWER.
[2019-08-09 11:27] VITALS: BP 110/52
--- NOTE | 2019-08-09 11:38 | NUR ---
PER PATIENT HE DOES NOT NEED ALBUTEROL, HE FEEL DIZZY WHEN HE USED IT, DR. LOPEZ IS AWARE
--- NOTE | 2019-08-09 12:11 | NUR ---
DISCHARGE INSTRUCTION GIVEN, PATIENT ABLE TO TAKE ALL HIS MEALS, LUNCH 100 PERCENT REGULAR DIET, PATIENT AMBULATORY, ALERT, ORIENTED, SKIN WARM TO TOUCH RESP. EVEN AND UNLABORED, NO SOB, NO AGITATION, SKIN INTACT, WILL ASSIST IN TAKING SHOWER.
--- NOTE | 2019-08-09 12:37 | NUR ---
ASSISTED PATIENT TO THE LOBBY, PATIENT ALERT, ORIENTED, TALKING IN THE PHONE TO HIS FAMILY, FAMILY AWARE OF DISCHARGE, NO AGITATION NOTED.
== END 2019-08-09 12:43 | disposition home or self-care (01) | DRG 750 ==
LOC: MED 17:57 → MTU 08-05 06:12
PROVIDERS: ADMIT Internal Medicine Pulmonary Disease; ATTEND Internal Medicine Pulmonary Disease
DX: F20.0 Paranoid schizophrenia (principal); R45.851 Suicidal ideations; F15.90 Other stimulant use, unspecified, uncomplicated; Z88.8 Allergy status to other drugs, medicaments and biological substances
CPT/HCPCS: 36415; 80053; 80305; 85025; 87081; 93005; 99285; G0480; G0482

== ENCOUNTER 2019-08-18 18:50 | Inpatient (IN) | payer OTHER ==
[~2019-08-18] VITALS: Ht 177.8 cm; Wt 94.3 kg
[~2019-08-18 18:50] MED LIST changes: +OLAN5TAB30 PO
[2019-08-18 19:12] VITALS: BP 166/84
--- NOTE | 2019-08-18 19:20 | NUR ---
PT AMBULATED TO ER BED 05
--- NOTE | 2019-08-18 19:36 | NUR ---
34 Y/O MALE PRESENTS TO ED, WALKED IN VOLUNTARY WITH SUICIDAL IDEATIONS WITHOUT ANY PLAN. PT STATES HAVING STRESS DUE TO FAMILY ISSUES. PT ENDORSED HEARING VOICES TELLING HIM TO HURT HIMSELF. PT HAS HX OF DEPRESSION, UNABLE TO STATE MEDICATIONS TAKEN. PREVIOUS SUICIDE ATTEMPT 5 YEARS AGO BY CUTTING HIS WRIST. PT DENIES ANY SUBSTANCE USE AT THIS TIME. ERMD AWARE. SI PRECAUTIONS INITIATED. WILL CONTINUE TO MONITOR.
--- NOTE | 2019-08-18 19:38 | NUR ---
TELEPSYCH ORDERED PER ER MD
--- NOTE | 2019-08-18 20:36 | NUR ---
PT LAYING ON BED QUIET. CONTINUES TO ENDORSE SI, GUARDED ABOUT ANY PLAN.
--- NOTE | 2019-08-18 21:27 | NUR ---
PT AMBULATED TO RESTROOM
[2019-08-18 22:06] LABS: BASOPHILS # (AUTO) 0.1 K/uL (0.00-0.22); BASOPHILS % (AUTO) 1.1 % (0.0-2.0); EOSINOPHILS # (AUTO) 0.2 K/uL (0-0.4); EOSINOPHILS % (AUTO) 2.5 % (0.0-4.0); HEMATOCRIT 43.3 % (36-52); LYMPHOCYTES # (AUTO) 1.1 K/uL (2.0-11.5); LYMPHOCYTES % (AUTO) 14.4 % (20.5-51.1); MEAN CORPUSCULAR HEMOGLOBIN 32 pg (27-31); MEAN CORPUSCULAR HGB CONC 32 g/dL (33-37); MEAN CORPUSCULAR VOLUME 98.4 fL (80-94); MONOCYTES # (AUTO) 0.4 K/uL (0.8-1.0); MONOCYTES % (AUTO) 4.9 % (1.7-9.3); NEUTROPHILS # (AUTO) 5.9 K/uL (1.8-7.7); NEUTROPHILS % (AUTO) 77.1 % (42.2-75.2); PLATELET COUNT (AUTO) 287 K/uL (140-450); RED CELL DISTRIBUTION WIDTH 12.9 % (11.6-13.7); WHITE BLOOD COUNT (AUTO) 7.7 K/uL (4.8-10.8)
[2019-08-18 22:08] LABS: APPEARANCE,URINE CLEAR (CLEAR); BILIRUBIN,URINE NEGATIVE (NEGATIVE); BLOOD, URINE NEGATIVE (NEGATIVE); COLOR,URINE YELLOW (YELLOW); LEUKOCYTE ESTERASE ,URINE NEGATIVE (NEGATIVE); NITRITE, URINE NEGATIVE (NEGATIVE); PH,URINE 6.5 (5.0-9.0); UGLUCOSE NEGATIVE (NEGATIVE)
[2019-08-18 22:15] LABS: BARBITURATE, URINE NEG. ng/ml (NEG <=200); BENZODIAZEPINE, URINE NEG. ng/mL (NEG <=200); CANNABINOID, URINE POS. ng/mL (NEG <=50); COCAINE, URINE NEG. ng/mL (NEG <=300); OPIATE, URINE NEG. ng/mL (NEG <=2000); PHENCYCLIDINE SCREEN,URINE NEG. ng/mL (NEG <=25)
[2019-08-18 22:23] LABS: ACETAMINOPHEN < 0.5 ug/ml (10-30); ALBUMIN 3.4 g/dL (3.4-5.0); ANION GAP 9.4 (8-16); ASPARTATE AMINOTRANSFERASE 18 U/L (15-37); CARBON DIOXIDE 30.5 mmol/L (21-32); CHLORIDE 104 mmol/L (98-107); GFR ARICAN-AMERICAN 109 mL/min (>90); GLUCOSE 115 mg/dL (74-106); POTASSIUM 3.9 mmol/L (3.5-5.1); SALICYLATE < 2.8 mg/dL (2.8-20.0); SODIUM SERUM 140 mmol/L (136-145); TOTAL BILIRUBIN 0.4 mg/dL (0.0-1.0); UREA NITROGEN, BLOOD 8 mg/dL (7-18)
--- NOTE | 2019-08-18 22:36 | NUR ---
[facility] has received patients chart and will begin working on bed placement.
--- NOTE | 2019-08-18 22:42 | NUR ---
Received facesheet and evaluation, pending MD notes and pending labs for medical clearance and then [facility] will begin working on placement.
--- NOTE | 2019-08-18 23:12 | NUR ---
complete packet has been received via fax from ED, Call Center will begin calling [facility] contracted psych facilities for voluntary placement.
--- NOTE | 2019-08-18 23:23 | NUR ---
Calls were made to [facility] contracted psych facilities regarding voluntary bed placement. [facility], spoke with Teena, no beds available for tonight. [facility], spoke with Linsey, no beds vacancies tonight and have no pending discharges at this time. [facility] and spoke with SANAM, no beds available and psych unit is full for the night. [facility], spoke with warehouse forklift operator Candy, no beds available tonight and they have patients in their ED pending psych admission. [facility], spoke with Merle, they have no [facility] beds available for patients over 20 years old at the moment, requested to call tomorrow morning to see if they have any pending discharges. [facility] spoke with Emy, no beds available tonight. Packet was faxed for AM review and to add patient onto their wait list. [facility], spoke with Radhika, no bed available but will accept patient for AM review. [facility], spoke with Emery, they are currently not accepting any out facility referrals at this time because they have pending admissions in their ED. Packet was faxed to Javad with [facility].
--- NOTE | 2019-08-18 23:39 | NUR ---
PT ASLEEP ON BED. NO BEHAVIOR ISSUES NOTED. WILL CONTINUE TO MONITOR.
[2019-08-19] MEDS ORDERED: ACETAMINOPHEN 325 MG TAB PO PRN (01:00)
[2019-08-19 01:24] VITALS: BP 121/78
--- NOTE | 2019-08-19 01:24 | NUR ---
REPORT RECEIVED FROM ED NURSE AT BEDSIDE. PT IN STABLE CONDITION. AAOX4. INTRODUCED SELF TO PT. NO COMPLAINTS OF PAIN. NO SOB. AFEBRILE. PT IS AMBULATORY. PT IS ON SI 1:1 SITTER 5150 HOLD. PT HAS A PLAN TO JUMP IN FRONT OF A CAR OR TRAIN BUT DOES NOT PLAN TO DO IT THIS INSTANT. PT HAS NO IV ACCESS. SKIN WARM, DRY, AND INTACT WITH NO OPEN WOUNDS. BED LOCKED IN LOW POSITION. CALL HAHN WITHIN REACH. SAFETY PRECAUTION IN PLACE. ALL NEEDS MET AT THIS TIME.
--- NOTE | 2019-08-19 01:30 | NUR ---
PT ADMITTED TO [facility]. TRANSFERRED VIA WHEELCHAIR; STABLE CONDITION. REPORT GIVEN TO LEENA AVINA; TRANSFER OF CARE AT THIS TIME.
--- NOTE | 2019-08-19 02:20 | NUR ---
PT IN BED. 1:1 SITTER AVAILABLE. NO S/S OF DISTRESS NOTED. WILL CONTINUE TO MONITOR.
--- NOTE | 2019-08-19 03:44 | NUR ---
PT SLEEPING COMFORTABLY BUT AROUSABLE. NO S/S OF DISTRESS NOTED. NO COMPLAINTS OF PAIN. NO SOB. AFEBRILE. WILL CONTINUE TO MONITOR.
--- NOTE | 2019-08-19 05:20 | NUR ---
PT SLEEPING COMFORTABLY BUT AROUSABLE. NO S/S OF DISTRESS NOTED. RESPIRATIONS EVEN, UNLABORED, AND WNL. WILL CONTINUE TO MONITOR.
--- NOTE | 2019-08-19 06:29 | NUR ---
PT SLEEPING COMFORTABLY BUT AROUSABLE. 1:1 SITTER. PT IN STABLE CONDITION.
--- NOTE | 2019-08-19 07:15 | NUR ---
RECEIVED PT FROM GALLERY OR MUSEUM ATTENDANT NURSE, PT IS ASLEEP AND LYING ON THE BED WITH 1'1 SITTER ON THE BEDSIDE, NO IV LINE NOTED ON THE PT AND PER ENDORSEMENT NO NEED FOR AN IV SINCE PT HAS ONLY ORAL MEDICINE, DENIES SUICIDAL IDEATION AND PT IS CALM AND ALERT AND ORIENTED, WILL CONTINUE TO BE MONITORED
[2019-08-19 08:00] VITALS: BP 104/46
[2019-08-19] MEDS ORDERED: OLANZapine 5 MG TAB PO SCH (09:00)
--- NOTE | 2019-08-19 09:20 | NUR ---
DR. CEJA CAME TO THE PT'S ROOM AND 1:1 SITTER ON THE BEDSIDE, PT DID NOT RESPOND TO THE QUESTIONING OF THE MD, CALM AND WITHDRAWN, BUT COMPLIANT ORAL MEDICATION WAS GIVEN TO PT AND TOLERATED.
--- NOTE | 2019-08-19 09:44 | NUR ---
PAGED DR. SOTO TO FOLLOW UP WITH THE CONSULT. PER DR. SOTO, HE WILL COME TO SEE PT AFTER LUNCH TODAY. NURSE ASSIGNED MADE AWARE.
--- NOTE | 2019-08-19 10:21 | NUR ---
PATIENT HAS BEEN SCREENED AND CATEGORIZED LOW NUTRITION RISK. PATIENT WILL BE SEEN WITHIN 7 DAYS OF ADMISSION. 08/26/19 VIRGINIE PRECIADO MBA, RD
--- NOTE | 2019-08-19 11:40 | NUR ---
PT IS CALM AND LYING ON THE BED AND 1:1 SITTER ON THE BEDSIDE.
--- NOTE | 2019-08-19 14:40 | NUR ---
PT IS SLEEPING NOW, 1;1 SITTER ON THE BEDSIDE.
[2019-08-19 16:00] VITALS: BP 114/60
--- NOTE | 2019-08-19 17:45 | NUR ---
PT IS AWAKE AND SEATED ON THE BED AND IS WAITING FOR DINNER, 1:1 SITTER ON THE BEDSIDE.
--- NOTE | 2019-08-19 19:25 | NUR ---
ENDORSED PT TO DRYWALL PROFESSIONAL NURSECOREY FOR CONTINUITY OF CARE, 1:1 SITTER ON THE BEDSIDE.
--- NOTE | 2019-08-19 19:26 | NUR ---
RECD. RESTING IN BED, SLEEPING COMFORTABLY BUT EASILY AROUSABLE. WAKES UP THEN WENT BACK TO SLEEP AGAIN. RESPIRATION EVEN AND UNLABORED. NO IV LINE. NO APPEARANCE OF PAIN NOTED 0/10. WILL CONTINUE TO MONITOR AND ENSURE SAFETY BEING THE NURSE SITTER FOR THIS SHIFT.
--- NOTE | 2019-08-19 20:00 | NUR ---
Patient's Plan of Care was discussed and reviewed with CAREER TECHNOLOGY TEACHER: Catrina CARDENAS
[2019-08-19] MEDS: OLANZapine 5 MG TAB PO SCH (21:12)
--- NOTE | 2019-08-19 21:12 | NUR ---
DUE PO MEDICATION GIVEN, COOPERATIVE. STILL HAS THOUGHTS OF HURTING HIMSELF. WENT BACK TO SLEEP AFTER TAKING MEDICATION.
[2019-08-20] VITALS: BP 127/69
--- NOTE | 2019-08-20 | NUR ---
SLEEPING COMFORTABLY IN BED.
--- NOTE | 2019-08-20 00:45 | NUR ---
WOKE UP, SNACK GIVEN REQUESTED. BACK TO SLEEP AFTER EATING.
--- NOTE | 2019-08-20 02:30 | NUR ---
STILL SLEEPING COMFORTABLY IN BED.
--- NOTE | 2019-08-20 06:50 | NUR ---
ABLE TO SLEEP WELL. NEW SITTER MONITORING PATIENT NEAR DOOR. CONDITION REMAIN STABLE. SAFETY MAINTAINED DURING SHIFT. WILL ENDORSE TO AM SHIFT NURSE FOR CONTINUITY OF CARE.
--- NOTE | 2019-08-20 07:08 | NUR ---
ENDORSED TO FABRICE ALEMAN FOR CONTINUITY OF CARE.
--- NOTE | 2019-08-20 07:13 | NUR ---
Change of shift report given, will continue to facilitate placement and keep facility updated with any information.
--- NOTE | 2019-08-20 07:15 | NUR ---
RECEIVED PT FROM HUMANE OFFICER NURSECOREY, PT IS AWAKE AND LYING ON THE BED WITH 1:1 SITTER ON THE BEDSIDE, ROOM FREE OF HAZARDOUS OBJECT, NO SIGN OF DISTRESS NOTED AND WILL MONITOR PT.
[2019-08-20 08:00] VITALS: BP 102/47
[2019-08-20] MEDS: ESCITALOPRAM 20 MG TAB PO SCH (08:22)
[2019-08-20] MEDS: OLANZapine 5 MG TAB PO SCH ×3 (08:22→22:50)
--- NOTE | 2019-08-20 09:25 | NUR ---
PT IS ASLEEP. 1:1 SITTER PRESENT BY THE BEDSIDE.
--- NOTE | 2019-08-20 12:15 | NUR ---
PT IS AWAKE AND IN BED. 1:1 SITTER PRESENT BY THE BEDSIDE.
[2019-08-20 16:00] VITALS: BP 99/47
--- NOTE | 2019-08-20 19:10 | NUR ---
ENDORSED PT TO DESIGN SPECIALIST NURSE FOR CONTINUITY OF CARE.
--- NOTE | 2019-08-20 19:11 | NUR ---
RECD. RESTING IN BED, WITH EYES CLOSED BUT ANSWERS QUESTIONS. A/OX4. RESPIRATION EVEN AND UNLABORED. NO IV LINE. WHEN INQUIRED IF HE STILL HAS THOUGHTS OF HURTING SELF AND HEARING VOICES, NODS HEAD. PLAN OF CARE FOR THE SHIFT DISCUSSED. DID NOT ANSWER. 1:1 SITTER MONITORING PATIENT NEAR DOOR. DENIES PAIN 0/10.
--- NOTE | 2019-08-20 19:31 | NUR ---
No beds were available through the day. Will endorse to character artist.
--- NOTE | 2019-08-20 21:30 | NUR ---
REFUSED NIGHT MEDICATION, WILL TRY AGAIN LATER.
--- NOTE | 2019-08-20 22:50 | NUR ---
WITH NOTED RESTLESSNESS. WHEN INQUIRED IF HE WANTS TO TAKE HIS NIGHT MEDICATION NOW, NODS HEAD. ZYPREXA GIVEN ORDERED.
[2019-08-21] VITALS: BP 108/65
--- NOTE | 2019-08-21 | NUR ---
SLEEPING COMFORTABLY IN BED.
--- NOTE | 2019-08-21 04:00 | NUR ---
STILL SLEEPING COMFORTABLY IN BED. NO AGITATION NOTED.
--- NOTE | 2019-08-21 06:21 | NUR ---
[facility] still aware of patient. Will continue to seek further placement for inpatient psych
--- NOTE | 2019-08-21 07:00 | NUR ---
CONDITION REMAIN STABLE. ENDORSED TO AM SHIFT NURSE FOR CONTINUITY OF CARE.
--- NOTE | 2019-08-21 07:00 | NUR ---
RECEIVED REPORT FROM OPERATOR PREFINISH NURSE. PT IS AROUSABLE TO NAME, ORIENTED X4, DENIES PAIN. RESPIRATIONS EVEN AND UNLABORED ON RA. ABD SOFT, ACTIVE BS. SITTER AT BEDSIDE, PT ON 5150 HOLD. SAFETY MEASURES IN PLACE, CALL LIGHT WITHIN REACH. REVIEWED POC WITH PT, PT VERBALIZED UNDERSTANDING.
[2019-08-21 08:00] VITALS: BP 116/59
--- NOTE | 2019-08-21 09:10 | NUR ---
PT IS RESTING IN BED IN SUPINE POSITION. PT HAS NO C/O PAIN AT THIS TIME.
[2019-08-21] MEDS: OLANZapine 5 MG TAB PO SCH (10:26)
[2019-08-21] MEDS: ESCITALOPRAM 20 MG TAB PO SCH (10:26)
--- NOTE | 2019-08-21 10:26 | NUR ---
ADMINISTERED MEDICATIONS PER ORDER, PT VERBALIZED UNDERSTANDING OF INDICATIONS AND POTENTIAL SIDE EFFECTS.
--- NOTE | 2019-08-21 10:27 | NUR ---
Called the following facilities; [facility] Emy no beds [facility] [place] no beds [facility] s/w Francia no beds, packet fax for wait list [facility]/w Barbra, no beds packet fax for wait list [facility] no answer. Will try later [facility] packet fax for review
--- NOTE | 2019-08-21 10:46 | NUR ---
DISCHARGE PLANNING 34 y/o male admitted on 08/19/19 for suicidal ideation and schizophrenia. Pt seen by psychiatrist and place on 5150 for DTS. 10:30am - Received a call from [facility] MITTAL who stated their medical supervisor is reviewing the case but most likely will be denied as there's no medical component for this admission. Pt only has psychiatric diagnosis. Call Center actively looking for placement. AGUSTIN Sifuentes/DAXA Ext [phone] Addendum: 08/21/19 at 1656 by Malika Wellington CM RECEIVED A CALL FROM THE PRIMARY RN, STATING THAT PATIENT GOT ACCEPTED AT [facility], [address] MAR[address]. CONTACTED [facility] AT [phone], ABLE TO SPEAK TO DANIELLA CHARGE NURSE, SHE CONFIRMED THAT PATIENT GOT ACCEPTED. KIMBERLY [facility] CALL [place] MADE AWARE AND WILL CHECK IF ABLE TO SET UP TRANSPORT. RECEIVED A VM FROM KIMBERLY [facility], COMMUNITY CULTURAL DEVELOPMENT OFFICER WILL BE IN 45 MINS. PRIMARY RN MADE AWARE. Addendum: 08/21/19 at 1700 by Malika Wellington CM KATHRINE LINTON [facility] PROVIDED TRANSPORT [facility] [phone]. TRANSPORT AUTH PROVIDED TO LYNNE LINTON [facility].
--- NOTE | 2019-08-21 12:30 | NUR ---
PER PT, "I STILL FEEL LIKE HURTING MYSELF". PT REPORTS NO RECENT LIFE CHANGES AND SUICIDAL IDEATIONS STARTED ABRUPTLY. WILL CONTINUE TO MONITOR. SITTER AT BEDSIDE.
--- NOTE | 2019-08-21 14:21 | NUR ---
RECEIVED CALL FROM ANIBAL FROM [facility] IN [place], FAX NUMBER PROVIDED .
--- NOTE | 2019-08-21 14:58 | NUR ---
DALY assessment/discharge plan High Risk DC Screen Yes Name: Gen [facility] Home Tel: father Pre-Admission Living Arrangements: Other Other: homeless Prior ADL Independent Current Home Health Name/Tel: N/A Current DME/02 Name/Tel: N/A Current Hospice Name/Tel: N/A Current Dialysis Name/Tel: N/A Healthcare Decision Maker: Patient Advance Directive No Information Taught: Community Resources Person Taught: Patient Teaching Tools: Community Resources Verbal Factors Affecting Learning: None Participation Level: Active Evaluation: Gestures Understanding Verbalizes Understanding Educator: DALY Christiansen Discipline: Case Mgt/Social Svcs Tentative Discharge Plan Summary: Patient is a 34 year old male admitted on a 5150 for suicidal ideation. I met with patient at bedside. Patient alert and oriented x4. Patient stated he is homeless and he is aware psychiatrist is recommending inpatient psych placement. He is in agreement with tentative discharge plan. He reports he receives food stamps and $200 from [employer]. He also stated he is employed but prefers not to disclose information about his employment. She told me his psychiatrist is and his last appt with was at the beginning of July 2019. He told me he is interested on room and boards. He thinks his phone number is . He denied alcohol/substance abuse. Pattern Chart Writer and/or Jira Administrator will follow up as needed. Signature: DALY Christiansen Date: Aug 21, 2019
--- NOTE | 2019-08-21 16:25 | NUR ---
PT ACCEPTED TO [facility] IN [place] - UNIT 1, 1013A, UNDER DR. MARES, NUMBER FOR REPORT IS . WILL NOTIFY CASE MANAGEMENT.
--- NOTE | 2019-08-21 16:42 | NUR ---
Per Malika Kaur CM, patient has been accepted at [facility], Unit 1- Room 1013-A. Accepting Md is Dr. Zhong. Called [facility] for transport and s/w Katelin. ETA 45 minutes. Called Malika and left vm
--- NOTE | 2019-08-21 17:00 | NUR ---
PT IS AWARE THAT HE HAS BEEN ACCEPTED TO [facility] IN [place]. PT IS AGREEABLE, NO SIGNS OF DISTRESS NOTED.
[2019-08-21 17:05] VITALS: BP 111/63
--- NOTE | 2019-08-21 17:40 | NUR ---
REPORT GIVEN TO FABRICE MAR OF [facility]. ALL QUESTIONS ANSWERED AND CLARIFIED. PROVIDED CALL BACK NUMBER FOR FURTHER QUESTIONS.
--- NOTE | 2019-08-21 18:00 | NUR ---
PT HAS BEEN DISCHARGED. ALL PAPERWORK SIGNED, ALL QUESTIONS ANSWERED. ALL BELONGINGS IN PT POSSESSION. WRISTBANDS REMOVED. PT TRANSFERRED OUT OF UNIT VIA [facility] TRANSPORT PERSONNEL AT SIDE. PT IS IN STABLE CONDITION WITH NO S/S OF DISTRESS.
== END 2019-08-21 17:26 | DRG 750 ==
LOC: MED 18:50 → MTU 08-19 01:03
PROVIDERS: ADMIT Internal Medicine; ATTEND Internal Medicine
DX: F20.9 Schizophrenia, unspecified (principal); R45.851 Suicidal ideations; Z59.0 Homelessness; F12.10 Cannabis abuse, uncomplicated; Z91.14 Patient's other noncompliance with medication regimen; Z88.8 Allergy status to other drugs, medicaments and biological substances
CPT/HCPCS: 36415; 80053; 80305; 81003; 85025; 87081; 93005; 99285; G0480

== ENCOUNTER 2019-11-29 13:08 | Inpatient (IN) | payer OTHER ==
[~2019-11-29] VITALS: Ht 177.8 cm; Wt 85.7 kg
[~2019-11-29 13:08] MED LIST changes: -ALBU0.0912 IH
--- NOTE | 2019-11-29 13:16 | NUR ---
PT TAKEN TO BED 5.
[2019-11-29 13:18] VITALS: BP 155/91
--- NOTE | 2019-11-29 13:20 | NUR ---
Note undone in EDM - 11/29/19 at 1517 by MAYA PT AMBULATED TO THE ER C/O SUICIDAL IDEATION WITH VAGUE PLAN S/P HAVING ARGUEMENT WITH HIS NEPHEW ABOUT ONE HOUR AGO. HE STATES: "I WANT TO KILL MY NEPHEW SINCE HE GAVE ME SO MUCH HARD TIME." PT IS CALM AT THIS TIME AND FOLLOWS COMMANDS AND ANSWERS QUESTIONS APPROPRIATELY. REPORTS COMMITTED TO SUICIDE BY CUTTING HIS RIGHT FOREARM WITH USE OF A KNIFE. PATIENT STATES PAIN OF 0/10 AT THIS TIME; VSS; PATIENT POSITIONED FOR COMFORT; HOB ELEVATED; BEDRAILS UP X2; BED DOWN. ER MD MADE AWARE OF PT STATUS. PT PLACED COMFORTABLE IN THE BED WITH A SAFE ENVIRONMENT IN THE ROOM.
--- NOTE | 2019-11-29 13:20 | NUR ---
PT AMBULATED TO THE ER C/O SUICIDAL IDEATION WITH VAGUE PLAN S/P HAVING ARGUEMENT WITH HIS NEPHEW ABOUT ONE HOUR AGO. HE STATES: "I WANT TO KILL MY NEPHEW SINCE HE GAVE ME SO MUCH HARD TIME." PT IS CALM AT THIS TIME AND FOLLOWS COMMANDS AND ANSWERS QUESTIONS APPROPRIATELY. REPORTS COMMITTED TO SUICIDE BY CUTTING HIS RIGHT FOREARM WITH USE OF A RAZOR ABOUT TWO WEEKS AGO, AND PT WAS HOSPITALIZED. PATIENT STATES PAIN OF 0/10 AT THIS TIME; VSS; PATIENT POSITIONED FOR COMFORT; HOB ELEVATED; BEDRAILS UP X2; BED DOWN. ER MD MADE AWARE OF PT STATUS. PT PLACED COMFORTABLE IN THE BED WITH A SAFE ENVIRONMENT IN THE ROOM.
--- NOTE | 2019-11-29 13:20 | NUR ---
Note undone in EDM - 11/29/19 at 1405 by MAYA PT AMBULATED TO THE ER C/O SUICIDAL IDEATION WITH VAGUE PLAN S/P HAVING ARGUEMENT WITH HIS NEPHEW ABOUT ONE HOUR AGO. HE STATES: "I WANT TO KILL MY NEPHEW SINCE HE GAVE ME SO MUCH HARD TIME." PT IS CALM AT THIS TIME AND FOLLOWS COMMANDS AND ANSWERS QUESTIONS APPROPRIATELY. REPORTS COMMITTED TO SUICIDE BY CUTTING HIS RIGHT FOREARM WITH USE OF A KNIFE. PATIENT STATES PAIN OF 0/10 AT THIS TIME; VSS; PATIENT POSITIONED FOR COMFORT; HOB ELEVATED; BEDRAILS UP X2; BED DOWN. ER MD MADE AWARE OF PT STATUS. PT PLACED COMFORTABLE IN THE BED WITH A SAFE ENVIRONMENT IN THE ROOM. 1-1 SITTER IS AT BEDSIDE.
--- NOTE | 2019-11-29 13:35 | NUR ---
ASHELY ([facility]) # [phone]
[2019-11-29 13:37] LABS: BASOPHILS # (AUTO) 0.1 K/uL (0.00-0.22); BASOPHILS % (AUTO) 0.7 % (0.0-2.0); EOSINOPHILS # (AUTO) 0.1 K/uL (0-0.4); EOSINOPHILS % (AUTO) 1.1 % (0.0-4.0); HEMATOCRIT 43.8 % (36-52); HEMOGLOBIN 14.6 g/dL (12.0-18.0); LYMPHOCYTES # (AUTO) 1.6 K/uL (2.0-11.5); LYMPHOCYTES % (AUTO) 14.8 % (20.5-51.1); MEAN CORPUSCULAR HEMOGLOBIN 32 pg (27-31); MEAN CORPUSCULAR HGB CONC 33 g/dL (33-37); MEAN CORPUSCULAR VOLUME 95.5 fL (80-94); MONOCYTES # (AUTO) 0.7 K/uL (0.8-1.0); MONOCYTES % (AUTO) 6.4 % (1.7-9.3); NEUTROPHILS # (AUTO) 8.1 K/uL (1.8-7.7); PLATELET COUNT (AUTO) 253 K/uL (140-450); RED BLOOD CELL COUNT(AUTO) 4.59 MIL/uL (4.20-6.10); RED CELL DISTRIBUTION WIDTH 12.2 % (11.6-13.7); WHITE BLOOD COUNT (AUTO) 10.5 K/uL (4.8-10.8)
[2019-11-29 14:03] LABS: ALBUMIN 3.6 g/dL (3.4-5.0); ANION GAP 10.4 (8-16); ASPARTATE AMINOTRANSFERASE 33 U/L (15-37); CARBON DIOXIDE 28.7 mmol/L (21-32); CHLORIDE 106 mmol/L (98-107); CREATININE 1.5 mg/dL (0.6-1.3); GFR ARICAN-AMERICAN 68 mL/min (>90); GLUCOSE 114 mg/dL (74-106); POTASSIUM 4.1 mmol/L (3.5-5.1); SALICYLATE 2.9 mg/dL (2.8-20.0); SODIUM SERUM 141 mmol/L (136-145); TOTAL BILIRUBIN 0.7 mg/dL (0.0-1.0); UREA NITROGEN, BLOOD 11 mg/dL (7-18)
[2019-11-29 14:14] LABS: ACETAMINOPHEN < 0.5 ug/ml (10-30)
--- NOTE | 2019-11-29 14:15 | NUR ---
PT IS NOT ABLE TO URINATE AT THIS TIME. TWO CUPS OF WATER PROVIDED.
--- NOTE | 2019-11-29 14:49 | NUR ---
PT IS URINATING INTO A URINAL IN THE BED.
[2019-11-29 15:07] LABS: BARBITURATE, URINE NEGATIVE ng/ml (NEG <=200)
[2019-11-29 15:08] LABS: BENZODIAZEPINE, URINE NEGATIVE ng/mL (NEG <=200); CANNABINOID, URINE POSITIVE ng/mL (NEG <=50); COCAINE, URINE NEGATIVE ng/mL (NEG <=300); OPIATE, URINE NEGATIVE ng/mL (NEG <=2000); PHENCYCLIDINE SCREEN,URINE NEGATIVE ng/mL (NEG <=25)
--- NOTE | 2019-11-29 16:00 | NUR ---
PSYCHAISTRIST DR. EUGENE IS EVEALUATING PT VIA CELEPHONE AT THIS TIME.
--- NOTE | 2019-11-29 17:26 | NUR ---
PT IS SITTING IN THE BED QUIETLY WITH EYES OPENED. VSS.
--- NOTE | 2019-11-29 17:27 | NUR ---
DINNER PROVIDED TO PT AT BEDSIDE. ASSISTED PT TO EAT.
--- NOTE | 2019-11-29 17:48 | NUR ---
YURI MTZ IS TALKING TO PT AT BEDSIDE.
--- NOTE | 2019-11-29 18:00 | NUR ---
PT HAS BEEN HELD ON 5150. 1:1 SITTE IS AT BEDSIDE.
--- NOTE | 2019-11-29 18:22 | NUR ---
PT IS RESTLESS AND SHAKEING HIS LEGS, BUT HE IS LYING IN THE BED QUIETLY. PT CAN FOLLOW COMMANDS AT THIS TIME.
--- NOTE | 2019-11-29 18:56 | NUR ---
Packet received for placement. Will start calling facilities for placement
--- NOTE | 2019-11-29 18:57 | NUR ---
Pt report given to FABRICE Ferris. Transfer of care at this time.
--- NOTE | 2019-11-29 19:01 | NUR ---
Pt report RECEIVED FROM FABRICE DIEHL. ASSUMED care OF PT at this time.
--- NOTE | 2019-11-29 19:10 | NUR ---
PT RESTLESS, LEGS MOVING, BUT PT RESTING IN BED IN POSITOIN OF COMFORT. BED LOW AND LOCKED, 2 SIDERAILS UP, ROOM FREE OF HAZARDOUS ITEMS, WILL CONTINUE TO MONITOR.
--- NOTE | 2019-11-29 19:12 | NUR ---
Called the following facilities: [facility] s/w Melissa, no beds for tonight [facility] s[facility]w [place], not taking a patient without Covid Testing [facility] s/w Jazz "Not taking any patient tonight, check back in the AM at 11:00 for any discharges".
--- NOTE | 2019-11-29 20:09 | NUR ---
Called the following facilities; [facility] s/w Jackelyn no beds. Packet faxed for wait list [facility] s/w Linsey, no beds. Packet faxed for wait list [facility] s/e Willa, no beds, they have patient in their ER, but asked to fax packet for AM discharges [facility] s/w Luis F, no beds but asked to fax packet for AM discharges
--- NOTE | 2019-11-29 20:14 | NUR ---
PT LEGS MOVING, BUT PT RESTING IN BED IN POSITOIN OF COMFORT. BED LOW AND LOCKED, 2 SIDERAILS UP, ROOM FREE OF HAZARDOUS ITEMS, WILL CONTINUE TO MONITOR. ANTONINO TAPIA RN, AT BEDSIDE.
[2019-11-29] MEDS ORDERED: ONDANSETRON 4 MG/2 ML VIAL IVP PRN (21:00)
[2019-11-29] MEDS ORDERED: HALOPERIDOL IM 5 MG/ML VIAL IM PRN (21:00)
[2019-11-29] MEDS ORDERED: ZOLPIDEM 5 MG TAB PO PRN (21:00)
[2019-11-29] MEDS ORDERED: ACETAMINOPHEN 325 MG TAB PO PRN (21:00)
[2019-11-29] MEDS ORDERED: LORazepam 2 MG/ML VIAL IVP PRN (21:00)
[2019-11-29 22:05] VITALS: BP 124/75
--- NOTE | 2019-11-29 22:08 | NUR ---
Patient will be admitted to care of . Admited to [facility]. Will go to room 109 B. Belongings list completed. Report to kedar brice, who assumed care of pt at this time.
--- NOTE | 2019-11-29 22:30 | NUR ---
Admitted from ER TO [facility], with chief complaint of SUICIDAL IDEATION , 34 y/o ,Male, Cooperative, AWAKE, A/OX4. RESPIRATION EVEN AND UNLABORED. WHEN INQUIRED IF HE HAS THOUGHTS OF HURTING HIMSELF STATED YES. ALSO ADMITTED HE HEARS VOICES BUT DID NOT SPECIFY WHAT THE VOICES IS TELLING HIM. NO IV LINE, REFUSED IV LINE INSERTION. INDEPENDENT, ABLE TO AMBULATE BY HIMSELF BUT AMBULATES WITH A LIMP, STATED HE HAS SOME PAIN IN THE RIGHT FOOT, NOTED A SLIGHT SWELLING, TENDER TO TOUCH AREA NEAR TOES OF RIGHT FOOT. NOTED HARD CALLOUSES ON BOTH HEELS. HEAD TO TOE ASSESSMENT DONE WITH CHARGE NURSE RANDELL, SKIN IS INTACT. DENIES PAIN 0/10. oriented to call light, bed, phone,television, bathroom, smoking policy,visiting hours, procedures, ID bracelet on. Belongings list checked.
--- NOTE | 2019-11-30 00:16 | NUR ---
UNABLE TO SLEEP, MEDICATED WITH AMBIEN PER MD ORDER.
--- NOTE | 2019-11-30 01:15 | NUR ---
SLEEPING COMFORTABLY IN BED.
--- NOTE | 2019-11-30 02:30 | NUR ---
AWAKE, FEELING COLD. WARM BLANKETS GIVEN.
--- NOTE | 2019-11-30 02:41 | NUR ---
Patient's Plan of Care was discussed and reviewed with [employer]: COREY CARDENAS
--- NOTE | 2019-11-30 03:00 | NUR ---
AWAKE, QUIET IN BED BUT KEEP ON TURNING AND TOSSING IN BED.
[2019-11-30 04:00] VITALS: BP 115/63
[2019-11-30] MEDS: HYDROcodone/APAP 5/325 MG 1 TAB TAB PO PRN ×2 (04:03→09:21)
--- NOTE | 2019-11-30 04:15 | NUR ---
INFORMED DR. GODFREY PATIENT IS REFUSING IV INSERTION IF THE ORDER FOR ATIVAN 1 MG. IV CAN BE CHANGED TO IM/IVP, AGREED.
[2019-11-30] MEDS ORDERED: LORazepam 2 MG/ML VIAL IM/IVP PRN (04:25)
--- NOTE | 2019-11-30 05:03 | NUR ---
There are still no beds at any of the designated facilities. Will endorse to incoming shift to further seek placement during their shift
--- NOTE | 2019-11-30 05:25 | NUR ---
WITH ANXIETY, MEDICATED WITH ATIVAN 1 MG IM PER MD ORDER.
--- NOTE | 2019-11-30 05:35 | NUR ---
NO ANXIETY NOTED, RESTING COMFORTABLY IN BED, TRYING TO GO TO SLEEP.
--- NOTE | 2019-11-30 05:35 | NUR ---
AMBULATED TO TO VOID, BACK TO BED AFTER VOIDING.
--- NOTE | 2019-11-30 06:15 | NUR ---
IN BED AWAKE LYING QUIETLY. NEW SITTER MONITORING PATIENT NEAR DOOR.
--- NOTE | 2019-11-30 06:45 | NUR ---
NO AGITATION BUT KEPT ON TURNING AND TOSSING IN BED, CONDITION REMAIN STABLE. SAFETY MAINTAINED. WILL ENDORSE TO AM SHIFT NURSE FOR CONTINUITY OF CARE.
--- NOTE | 2019-11-30 07:05 | NUR ---
SLEEPING COMFORTABLY IN BED. SITTER MONITORING PATIENT NEAR DOOR. ENDORSED TO AM SHIFT NURSE FOR CONTINUITY OF CARE.
--- NOTE | 2019-11-30 07:08 | NUR ---
RECEIVED REPORT FROM NIGHT NURSE PT IS SLEEPING COMFORTABLY AND ON ROOM AIR. NO IV INSERTED. NO DISTRESS NOTED. SAFETY MEASURES IN PLACE CALL LIGHT WITHIN REACH.
--- NOTE | 2019-11-30 07:59 | NUR ---
RECIEVED REPORT FROM NOC SHIFT AT THIS TIME THERE ARE NO AVAIL BEDS AT FACILITIES WILL CONT TO MONITOR NOTES AND ASSIST IN PLACEMENT
[2019-11-30 08:00] VITALS: BP 112/64
--- NOTE | 2019-11-30 09:27 | NUR ---
PT COMPLAINS OF BODY SORE AND PAIN 9/10 AT THIS TIME. CHECK VITAL SIGNS BP 112/64 RI 70 PRIOR TO MEDICATIONS. SAFETY MEASURES IN PLACE AND CALL LIGHT WITHIN REACH. WILL CONTINUE TO MONITOR.
--- NOTE | 2019-11-30 09:38 | NUR ---
PATIENT HAS BEEN SCREENED AND CATEGORIZED LOW NUTRITION RISK. PATIENT WILL BE SEEN WITHIN 7 DAYS OF ADMISSION. 12/06/[address]
--- NOTE | 2019-11-30 09:56 | NUR ---
DC PLANNIN YRS OLD MALE PATIENT WAS ADMITTED FROM HOME WITH A DX OF SUICIDAL IDEATION 5150 HOLD . 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 LABS WITH IN NORMAL LIMIT, VITALS STABLE , ADMINISTERED ATIVAN AND NORCO FOR PAIN. AWAITING FOR DR SOTO (PSYCHIATRY) EVALUATION. DC PLAN PER PSYCHIATRY RECOMMENDATION. CM TO FOLLOW Addendum: 11/30/19 at 1139 by Maliha Solano CM [facility] BEEN ACCEPTED AT [facility]. CALLED [employer] FOR IE DIRECT FOR AUTH ON TRANSPORTATION WITH [facility] AUTH # [id number]. Addendum: 11/30/19 at 1153 by Maliha Solano CM CALLED [facility] FOR PICKUP. [facility] ARRIVAL WILL BE 1530, NOTIFIED RNAlison
--- NOTE | 2019-11-30 10:13 | NUR ---
received call from [facility] spoke with states lisa patient has been accepted to the following: [facility] [address] [facility] Room# 15A Report #: [id number] Accepting: Dr. Koroma
--- NOTE | 2019-11-30 10:29 | NUR ---
PHARMACOLOGIST NOTE: Basic Screen: Yes High Risk DC Screen [place]: JORY Peck Relationship: FATHER Pre-Admission Living Arrangements: Lives with Other Prior ADL Independent Current Home Health Name/Tel: N/A Current DME/02 Name/Tel: N/A Current Hospice Name/Tel: N/A Current Dialysis Name/Tel: N/A Healthcare Decision Maker: Patient Advance Directive No Physician Orders for Life Sustaining Treatment Form No Patient/Family Have Educational Needs No Information Taught: Community Resources Person Taught: Patient Teaching Tools: Community Resources Verbal Factors Affecting Learning: None Participation Level: Refused Evaluation: Verbalizes Understanding Needs Additional Education: No Discipline: Case Mgt/Social Svcs Tentative Discharge Plan/Destination: Other Will require assistance post discharge: No Referred to [facility]: No Tentative Discharge Plan Summary: PATIENT IS A 34-YEAR-OLD MALE ADMITTED FOR SUICIDAL IDEATION. PATIENT HAS NO SIGNIFICANT PMHX. PATIENT WAS ADMITTED FROM HOME WHERE HE REPORTS STAYING WITH HIS MOTHER. SW MET WITH PATIENT AT BEDSIDE TO VERIFY DEMOGRAPHICS AND ASSESS FOR RISK FACTORS. PER PATIENT, HE HAS BEEN EXPERIENCING DEPRESSION AND SUICIDAL IDEATIONS. PATIENT DENIES HOMICIDAL IDEATIONS. PATIENT WAS HOSPITALIZED ON 08/05/2019 AND 08/19/2019 FOR 5150 AND IS KNOWN TO [facility]. PATIENT REPORTED HISTORY OF SCHIZOPHRENIA AND BIPOLAR DISORDER. PATIENT DENIES AH/VH AND STATED THAT HE RECEIVES MENTAL HEALTH RESOURCES FROM [facility], WHERE HE SEES A THERAPIST AND PSYCHIATRIST. SW USED MOTIVATIONAL INTERVIEWING AND ACTIVE LISTENING REGARDING HOW PATIENT WAS HOSPITALIZED. PATIENT STATED THAT HE HAS BEEN WITHOUT HIS MEDICATION AND THAT HE WAS THREATENED BY HIS NEPHEW, AND VERBALLY THREATENED HIS NEPHEW BACK. PATIENT REPORTS DAILY METHAMPHETAMINE AND MARIJUANA USE. SW OFFERED MENTAL HEALTH RESOURCES, SUBSTANCE ABUSE RESOURCES, AND ROOM AND BOARD RESOURCES, BUT PATIENT REFUSED. PATIENT STATED THAT HE MAKES $975 MONTHLY FROM [employer] BUT HIS MOTHER IS HIS PAYEE. PATIENT STATED THAT HE PLANS TO MOVE TO [place] AFTER HOSPITALIZATION AND PLANS TO SEEK [facility]. TENTATIVE DISCHARGE PLAN IS FOR PATIENT TO BE DISCHARGED TO PSYCHIATRIC FACILITY DEPENDING ON PSYCHIATRIC CONSULT. SW WILL REMAIN AVAILABLE IF ANY FURTHER ISSUES ARISE. Signature: DALY SANON Date: November 30, 2019 Time: 10:28
--- NOTE | 2019-11-30 10:38 | NUR ---
Left a voicemail on Dr. Garza cell phone regarding the consult. awaiting for call back.
--- NOTE | 2019-11-30 12:20 | NUR ---
GAVE REPORT FINA AVINA OF [facility] AT THIS TIME.
--- NOTE | 2019-11-30 12:39 | NUR ---
PT IS BEING DISCHARGE FOR TRANSFER TO [facility].
--- NOTE | 2019-11-30 12:40 | NUR ---
CALLED PT FAMILY JORY SEGOVIA BUT NO ANSWER, LEFT A VOICEMAIL INFORMING HER THAT JAIME SEGOVIA IS BEING TRANSFERRED TO [facility].
--- NOTE | 2019-11-30 13:55 | NUR ---
DISCHARGED INSTRUCTIONS GIVEN TO PT AT BEDSIDE. PT WAS TRANSFERRED TO [facility] VIA GURNEY TAKEN BY [facility] TRANSPORTATION,ANSWERED PT QUESTIONS AND VERBALIZES UNDERSTANDING. PT WAS CHANGED TO HOME CLOTHES AND ASSISTED TO THE LOBBY. PT IS DISCHARGED FOR TRANSFER TO [facility]. PT IS STABLE.
--- NOTE | 2019-11-30 14:22 | NUR ---
Patient to transfer to [facility].
== END 2019-11-30 13:55 | DRG 754 ==
LOC: MED 13:08 → MTU 21:02
PROVIDERS: ADMIT Internal Medicine; ATTEND Internal Medicine
DX: F32.9 Major depressive disorder, single episode, unspecified (principal); R45.851 Suicidal ideations; F12.10 Cannabis abuse, uncomplicated; I10 Essential (primary) hypertension; F15.10 Other stimulant abuse, uncomplicated; F17.210 Nicotine dependence, cigarettes, uncomplicated; Z88.8 Allergy status to other drugs, medicaments and biological substances
CPT/HCPCS: 36415; 80053; 80305; 85025; 87081; 93005; 99285; G0480; G0482; J2060

== ENCOUNTER 2021-05-29 01:40 | Emergency (ER) | payer OTHER ==
[~2021-05-29] VITALS: Ht 175.3 cm; Wt 86.2 kg
[2021-05-29 01:56] VITALS: BP 149/54
--- NOTE | 2021-05-29 02:00 | NUR ---
PT TAKEN TO BED #9
--- NOTE | 2021-05-29 02:16 | NUR ---
ICE PACK GIVEN FOR PAIN RELIEF.
--- NOTE | 2021-05-29 02:22 | NUR ---
XRAY AT BEDSIDE.
[2021-05-29] MEDS ORDERED: IBUP-2218 PO (03:05)
[2021-05-29 03:08] VITALS: BP 138/60
== END 2021-05-29 03:08 | disposition home or self-care (01) ==
LOC: MED 01:40
DX: S93.401A Sprain of unspecified ligament of right ankle, initial encounter (principal); Z79.899 Other long term (current) drug therapy; X50.1XXA Overexertion from prolonged static or awkward postures, initial encounter; Y93.89 Activity, other specified; Y92.89 Other specified places as the place of occurrence of the external cause; Y99.8 Other external cause status
CPT/HCPCS: 73610; 99283; Q0092

== ENCOUNTER 2021-12-07 06:12 | Emergency (ER) | payer SELFPAY ==
[~2021-12-07] VITALS: Ht 175.3 cm; Wt 92.8 kg
[~2021-12-07 06:12] MED LIST changes: +IBUP-2218 PO; -OLAN5TAB30 PO
--- NOTE | 2021-12-07 06:16 | NUR ---
CALLED PT TO TRIAGE, PT IS IN RR STATED "ILL BE OUT RIGHT NOW"
[2021-12-07 06:22] VITALS: BP 131/73
--- NOTE | 2021-12-07 06:30 | NUR ---
PT TAKEN TO ER BED 05
--- NOTE | 2021-12-07 06:31 | NUR ---
36 Y/OMALE BIBS FROM HOME. PT STATES HE FEELS SAD XTODAY. PT STATES HE WAS JUST FIRED YESTERDAY. STATES HE HAS THOUGHTS OF HURTING HIMSELF, PT DOES NOT HAVE A CLEAR PLAN. WHEN ASKED ABOUT A PLAN PT STATED "WHATEVER IS CLEVER." A/OX4, GCS-15; UNLABORED BREATHING, SPEAKING IN FULL SENTENCES; AMBULATORY W/O ASSISTANCE; DENIES COUGH, FEVER, N/V/D, SOB, OR CP; SKIN NORMAL, WARM, AND DRY. PT SEATED IN BED W/ HOB RAISED, BED IN LOWEST SETTING, AND RAIL UP X1. PT CHANGED INTO GOWN AND BELONGING COLLECTED. DENIES HX, RX AND ALLERGIES
--- NOTE | 2021-12-07 06:33 | NUR ---
ER MD AT BEDSIDE EXAMINING PT
--- NOTE | 2021-12-07 06:41 | NUR ---
STOREPERSON AT BEDSIDE
--- NOTE | 2021-12-07 06:41 | NUR ---
GABBY/PAIGE SWABBED AND HANDED TO PROTOHISTORIAN
--- NOTE | 2021-12-07 06:45 | NUR ---
PTs BELONGINGS COLLECTED BY SECURITY
[2021-12-07 06:51] LABS: BASOPHILS # (AUTO) 0.1 K/uL (0.00-0.22); EOSINOPHILS # (AUTO) 0.3 K/uL (0-0.4); HEMATOCRIT 42.9 % (36-52); HEMOGLOBIN 14.3 g/dL (12.0-18.0); LYMPHOCYTES # (AUTO) 1.6 K/uL (2.0-11.5); LYMPHOCYTES % (AUTO) 18.7 % (20.5-51.1); MEAN CORPUSCULAR HEMOGLOBIN 31 pg (27-31); MEAN CORPUSCULAR HGB CONC 33 g/dL (33-37); MEAN CORPUSCULAR VOLUME 93.3 fL (80-94); MONOCYTES # (AUTO) 0.6 K/uL (0.8-1.0); MONOCYTES % (AUTO) 7.4 % (1.7-9.3); NEUTROPHILS # (AUTO) 6.2 K/uL (1.8-7.7); NEUTROPHILS % (AUTO) 69.9 % (42.2-75.2); PLATELET COUNT (AUTO) 253 K/uL (140-450); RED CELL DISTRIBUTION WIDTH 12.8 % (11.6-13.7); WHITE BLOOD COUNT (AUTO) 8.8 K/uL (4.8-10.8)
[2021-12-07 07:15] LABS: ANION GAP 14.9 (8-16); ASPARTATE AMINOTRANSFERASE 73 U/L (15-37); CARBON DIOXIDE 25.7 mmol/L (21-32); CHLORIDE 103 mmol/L (98-107); CREATININE 1.2 mg/dL (0.6-1.3); GFR ARICAN-AMERICAN 87 mL/min (>90); GLUCOSE 107 mg/dL (74-106); POTASSIUM 3.6 mmol/L (3.5-5.1); SALICYLATE 3.2 mg/dL (2.8-20.0); SODIUM SERUM 140 mmol/L (136-145); TOTAL BILIRUBIN 0.7 mg/dL (0.0-1.0); UREA NITROGEN, BLOOD 12 mg/dL (7-18)
--- NOTE | 2021-12-07 07:17 | NUR ---
REPORT GIVEN TO FABRICE MEDEIROS. TRANSFER OF CARE AT THIS TIME.
[2021-12-07 07:23] LABS: ACETAMINOPHEN < 0.5 ug/ml (10-30)
--- NOTE | 2021-12-07 07:56 | NUR ---
PT ON TELEPSYCH EVALUATION WITH / DR. Green RECOMMENDING 5150 HOLD.
--- NOTE | 2021-12-07 08:10 | NUR ---
PT MEDICALLY CLEARED BY DR CHEN.
--- NOTE | 2021-12-07 08:10 | NUR ---
URINE COLLECTED AND WALKED TO LAB
--- NOTE | 2021-12-07 08:12 | NUR ---
[facility] MTZ CALLED TO PLACE PT ON 5150 HOLD.
[2021-12-07 08:16] LABS: APPEARANCE,URINE CLEAR (CLEAR); BILIRUBIN,URINE NEGATIVE (NEGATIVE); BLOOD, URINE NEGATIVE (NEGATIVE); COLOR,URINE YELLOW (YELLOW); LEUKOCYTE ESTERASE ,URINE NEGATIVE (NEGATIVE); NITRITE, URINE NEGATIVE (NEGATIVE); UGLUCOSE NEGATIVE (NEGATIVE)
--- NOTE | 2021-12-07 09:13 | NUR ---
[place] [employer] AT BEDSIDE, PT STATED "I DONT WANT HELP FROM THE POLICE". 5150 HOLD NOT WRITTEN.
--- NOTE | 2021-12-07 10:34 | NUR ---
PT RESTING IN NO APPARENT DISTRESS, BREATHING EVEN AND UNLABORED. WILL CONTINUE TO MONITOR.
[2021-12-07 10:51] LABS: BARBITURATE, URINE NEGATIVE ng/ml (NEG <=200); BENZODIAZEPINE, URINE NEGATIVE ng/mL (NEG <=200); CANNABINOID, URINE POSITIVE ng/mL (NEG <=50); COCAINE, URINE NEGATIVE ng/mL (NEG <=300); OPIATE, URINE NEGATIVE ng/mL (NEG <=2000); PHENCYCLIDINE SCREEN,URINE NEGATIVE ng/mL (NEG <=25)
[2021-12-07] MEDS ORDERED: WATER STERILE 10 ML MC ONE (11:06)
[2021-12-07] MEDS: OLANZapine 10 MG VIAL IM ONE (11:12)
--- NOTE | 2021-12-07 13:12 | NUR ---
PT RESTING IN NO APPARENT DISTRESS, BREATHING EVEN AND UNLABORED. WILL CONTINUE TO MONITOR.
--- NOTE | 2021-12-07 15:47 | NUR ---
PT RESTING IN BED, EVEN AND UNLABORED BREATHING, WILL CONTINUE TO MONITOR.
--- NOTE | 2021-12-07 17:40 | NUR ---
[place] [employer] AT BEDSIDE EVALUATING PT
--- NOTE | 2021-12-07 17:44 | NUR ---
PT PLACED ON 5150 HOLD, DTS BY YURI MTZ.
--- NOTE | 2021-12-07 18:00 | NUR ---
PT PROVIDED WITH DINNER
--- NOTE | 2021-12-07 19:14 | NUR ---
Pt report given to ACACIA Vital. Transfer of care at this time.
--- NOTE | 2021-12-07 19:25 | NUR ---
REPORT RECEIVED FROM WALDEMAR ROGER
[2021-12-07] MEDS: OLANZapine 5 MG TAB PO SCH (21:10)
--- NOTE | 2021-12-07 21:38 | NUR ---
PT RESTING RESP PIPO AND UNLABORED. SIDE RAILS UP X2
--- NOTE | 2021-12-08 00:03 | NUR ---
PT RESTING RESP EVEN AND UNLABORED. SIDE RAILS UP X2
--- NOTE | 2021-12-08 01:17 | NUR ---
PT AWAKE AND EATING
--- NOTE | 2021-12-08 06:13 | NUR ---
PATIENT MEETS INPATIENT CRITERIA PER DR ANDREWS. [facility] AWARE FOR PLACEMENT. PENDING PLACEMENT.
--- NOTE | 2021-12-08 06:51 | NUR ---
S/W [facility] PENDING AVAIL. BED PLACEMENT
--- NOTE | 2021-12-08 07:14 | NUR ---
REPORT RECEIVED FROM TUNG ROGER. ASSUMED CARE AT THIS TIME
--- NOTE | 2021-12-08 07:15 | NUR ---
pt ambulated to restroom
--- NOTE | 2021-12-08 07:16 | NUR ---
pt ambulated back to room
--- NOTE | 2021-12-08 08:10 | NUR ---
PT AWAKE AND PROVIDED WITH BREAKFAST
[2021-12-08 08:15] VITALS: BP 121/64
--- NOTE | 2021-12-08 10:15 | NUR ---
PT ON TELEPSYCH VIDEO CALL FOR REEVALUATION
--- NOTE | 2021-12-08 10:29 | NUR ---
Wolf stevens in ED - 12/08/21 at 1033 by PHSEP VERBAL ORDER RECEIVED FROM DR PRICE FOR ZYPREXA 10MG PO QHS. READ BACK AND CONFIRMED.
[2021-12-08] MEDS ORDERED: OLAN20TA1 PO (10:37)
--- NOTE | 2021-12-08 10:40 | NUR ---
PT CLEARED BY PSYCHIATRIST DR Carreon. DR CHEN MADE AWARE
--- NOTE | 2021-12-08 11:05 | NUR ---
Patient discharged with v/s stable. Written and verbal after care instructions FOR SCHIZOPHRENIA given and explained. Patient alert, oriented and verbalized understanding of instructions. Ambulatory with steady gait. All questions addressed prior to discharge. ID band removed. Patient advised to follow up with PMD. Rx of ZYPREXA given. Opportunity to ask questions provided and answered. PT PROVIDED WITH ALCOHOL/SUBSTANCE ABUSE AND PSYCHIATRIC RESOURCES INFO PACKETS. ALL BELONGINGS RETURNED TO PT.
--- NOTE | 2021-12-08 11:06 | NUR ---
The patient's care was reviewed and supervised by Ghazal Vogel RN.
== END 2021-12-08 11:05 | disposition home or self-care (01) ==
LOC: MED 06:12
DX: R45.851 Suicidal ideations (principal); Z20.822 Contact with and (suspected) exposure to COVID-19; F32.9 Major depressive disorder, single episode, unspecified; Z79.899 Other long term (current) drug therapy
CPT/HCPCS: 36415; 80053; 80305; 81003; 85025; 87426; 87635; 96372; 99285; C9803; G0480; G0482; J3490

== ENCOUNTER 2022-01-07 03:09 | Emergency (ER) | payer SELFPAY ==
[~2022-01-07] VITALS: Ht 175.3 cm; Wt 90.7 kg
[~2022-01-07 03:09] MED LIST changes: +OLAN20TA1 PO
[2022-01-07 03:20] VITALS: BP 146/80
--- NOTE | 2022-01-07 03:20 | NUR ---
TO BED AMBULATORY
--- NOTE | 2022-01-07 04:05 | NUR ---
36 Y.O. M BIB SELF C/O ABD PAIN, N/V, HEADACHE ALL DAY. PAIN IS 10/10 IN HIS LOWER ABDOMEN. VITALS WNL, NO SOB OR CHEST PAIN, STEADY GAIT, SKIN INTACT AND NO PIAN WITH URINATION. ALLERGY: TYLENOL NPMH
[2022-01-07] MEDS: ONDANSETRON 4 MG ODT PO ONE (04:19)
[2022-01-07] MEDS: KETOROLAC 30 MG/ML VIAL IM ONE (04:22)
--- NOTE | 2022-01-07 05:11 | NUR ---
PT TAKEN TO CT
--- NOTE | 2022-01-07 05:20 | NUR ---
PT BACK FROM CT
--- NOTE | 2022-01-07 05:32 | NUR ---
LABS COLLECTED AND WALKED TO LAB
[2022-01-07 05:44] LABS: BASOPHILS % (AUTO) 0.6 % (0.0-2.0); EOSINOPHILS # (AUTO) 0.2 K/uL (0-0.4); EOSINOPHILS % (AUTO) 2.3 % (0.0-4.0); HEMATOCRIT 42.7 % (36-52); HEMOGLOBIN 14.1 g/dL (12.0-18.0); LYMPHOCYTES # (AUTO) 1.3 K/uL (2.0-11.5); LYMPHOCYTES % (AUTO) 17.7 % (20.5-51.1); MEAN CORPUSCULAR HEMOGLOBIN 32 pg (27-31); MEAN CORPUSCULAR HGB CONC 33 g/dL (33-37); MEAN CORPUSCULAR VOLUME 95.6 fL (80-94); MONOCYTES # (AUTO) 0.5 K/uL (0.8-1.0); MONOCYTES % (AUTO) 6.9 % (1.7-9.3); NEUTROPHILS # (AUTO) 5.3 K/uL (1.8-7.7); NEUTROPHILS % (AUTO) 72.5 % (42.2-75.2); PLATELET COUNT (AUTO) 239 K/uL (140-450); RED BLOOD CELL COUNT(AUTO) 4.47 MIL/uL (4.20-6.10); RED CELL DISTRIBUTION WIDTH 13.1 % (11.6-13.7); WHITE BLOOD COUNT (AUTO) 7.3 K/uL (4.8-10.8)
[2022-01-07 06:05] VITALS: BP 146/82
[2022-01-07 06:05] LABS: ALBUMIN 3.9 g/dL (3.4-5.0); ANION GAP 8.2 (8-16); CARBON DIOXIDE 29.4 mmol/L (21-32); CREATININE 1.1 mg/dL (0.6-1.3); POTASSIUM 3.6 mmol/L (3.5-5.1)
[2022-01-07] MEDS ORDERED: ONDA-188 SL (06:41)
[2022-01-07] MEDS ORDERED: BEN10 PO (06:41)
--- NOTE | 2022-01-07 07:15 | NUR ---
Pt report given to CRISTY. Transfer of care at this time.
--- NOTE | 2022-01-07 07:58 | NUR ---
Patient discharged with v/s stable. Written and verbal after care instructions given and explained. Patient alert, oriented and verbalized understanding of instructions. Ambulatory with steady gait. All questions addressed prior to discharge. ID band removed. Patient advised to follow up with PMD. Rx of DICYCLOMINE HYDROCHLORIDE, ONDANSETORN given. Opportunity to ask questions provided and answered.
--- NOTE | 2022-01-07 07:59 | NUR ---
Chart checked and completed. The patient's care was reviewed and supervised by Gunjan Barton RN.
== END 2022-01-07 07:58 | disposition home or self-care (01) ==
LOC: MED 03:09
DX: R11.2 Nausea with vomiting, unspecified (principal); R10.84 Generalized abdominal pain; R51.9 Headache, unspecified; Z79.899 Other long term (current) drug therapy
CPT/HCPCS: 36415; 74176; 80053; 83690; 85025; 96372; 99284; J1885; Q0162

== ENCOUNTER 2022-01-10 21:53 | Emergency (ER) | payer SELFPAY ==
[~2022-01-10] VITALS: Ht 175.3 cm; Wt 88.0 kg
[~2022-01-10 21:53] MED LIST changes: +BEN10 PO; +ONDA-188 SL
[2022-01-10 22:21] VITALS: BP 105/72
--- NOTE | 2022-01-10 22:42 | NUR ---
Blood for labwork drawn from right arm per vp analysis. Patient tolerated well.
[2022-01-10 22:56] LABS: BASOPHILS % (AUTO) 0.5 % (0.0-2.0); EOSINOPHILS # (AUTO) 0.2 K/uL (0-0.4); EOSINOPHILS % (AUTO) 3.2 % (0.0-4.0); HEMATOCRIT 42.1 % (36-52); HEMOGLOBIN 13.9 g/dL (12.0-18.0); LYMPHOCYTES # (AUTO) 2.1 K/uL (2.0-11.5); MEAN CORPUSCULAR HEMOGLOBIN 31 pg (27-31); MEAN CORPUSCULAR HGB CONC 33 g/dL (33-37); MONOCYTES # (AUTO) 0.4 K/uL (0.8-1.0); NEUTROPHILS # (AUTO) 3.6 K/uL (1.8-7.7); NEUTROPHILS % (AUTO) 56.3 % (42.2-75.2); PLATELET COUNT (AUTO) 256 K/uL (140-450); RED BLOOD CELL COUNT(AUTO) 4.43 MIL/uL (4.20-6.10); RED CELL DISTRIBUTION WIDTH 12.8 % (11.6-13.7); WHITE BLOOD COUNT (AUTO) 6.3 K/uL (4.8-10.8)
--- NOTE | 2022-01-10 23:30 | NUR ---
SOC TELEPSYCH REQUEST INITIATED PER DR. MELVIN
[2022-01-10 23:32] LABS: ALBUMIN 3.7 g/dL (3.4-5.0); ANION GAP 7.1 (8-16); CARBON DIOXIDE 31.4 mmol/L (21-32); CREATININE 0.9 mg/dL (0.6-1.3); POTASSIUM 3.5 mmol/L (3.5-5.1); TOTAL BILIRUBIN 0.4 mg/dL (0.0-1.0)
--- NOTE | 2022-01-11 | NUR ---
COVID-19 swabs collected and sent to lab.
--- NOTE | 2022-01-11 00:26 | NUR ---
PT MOVED TO ER BED 8
--- NOTE | 2022-01-11 00:30 | NUR ---
PT BELONGINGS GATHERED BY HOSPITAL SECURITY
--- NOTE | 2022-01-11 00:32 | NUR ---
URINE OBTAINED AND SENT TO LAB
--- NOTE | 2022-01-11 00:35 | NUR ---
36YR OLD MALE BIB SELF C/O SI X TODAY. PATIENT STATED "I WANT TO KILL MYSELF" PT IS A&OX4. PT HAS A HX OF SI . PT IS HOMELESS. STATES NO HARM TO OTHERS. ALL BELONGINGS BAGGED AND SENT TO SECURITY. PT IN GOWN SIDE RAILS UP X2. FOOD PROVIDED AT BEDSIDE. NKDA DEPRESSION ANXIETY SI
[2022-01-11 00:55] LABS: BARBITURATE, URINE NEGATIVE ng/ml (NEG <=200)
[2022-01-11 00:56] LABS: BENZODIAZEPINE, URINE NEGATIVE ng/mL (NEG <=200); CANNABINOID, URINE POSITIVE ng/mL (NEG <=50); COCAINE, URINE NEGATIVE ng/mL (NEG <=300); OPIATE, URINE NEGATIVE ng/mL (NEG <=2000); PHENCYCLIDINE SCREEN,URINE NEGATIVE ng/mL (NEG <=25)
--- NOTE | 2022-01-11 00:59 | NUR ---
ANTELMO WILL BE PENDING
--- NOTE | 2022-01-11 01:47 | NUR ---
PT RESTING . RESP EVEN AND UNLABORED. SIDE RAILS DOWN X2 BED AT LOWEST POSITON
--- NOTE | 2022-01-11 05:18 | NUR ---
FOOD GIVEN TO PATIENT
--- NOTE | 2022-01-11 07:24 | NUR ---
report given to EDEN ROGER. transfered care at this time
--- NOTE | 2022-01-11 07:24 | NUR ---
REPORT RECEIVED FROM TUNG ROGER. ASSUMED CARE AT THIS TIME
--- NOTE | 2022-01-11 08:00 | NUR ---
[facility] MTZ CALLED FOR 5150 EVALUATION. spoke with KOSTAS
--- NOTE | 2022-01-11 08:04 | NUR ---
PT PROVIDED WITH BREAKFAST. PT AWAKE AND EATING IN BED
--- NOTE | 2022-01-11 09:00 | NUR ---
PT UNCOOPERATIVE WITH SI ASSESSMENT
--- NOTE | 2022-01-11 09:10 | NUR ---
[facility] MTZ EVALUATED PATIENT AND DOES NOT MEET CRITERIA FOR A HOLD
--- NOTE | 2022-01-11 11:32 | NUR ---
PT AT REST AND SLEEPING. RESPIRATIONS EVEN AND UNLABORED. PT IN VIEW, BED AT LOWEST POSITION WITH BED RAILS UP X1
--- NOTE | 2022-01-11 16:30 | NUR ---
PT REPORTS 10/10 SHARP NECK PAIN. MD NOTIFIED
[2022-01-11] MEDS ORDERED: KETOROLAC 60 MG/2 ML VIAL IM ONE (16:50)
[2022-01-11] MEDS ORDERED: OLANZapine 5 MG ODT PO ONE (17:00)
[2022-01-11 18:45] VITALS: BP 117/75
== END 2022-01-11 18:45 | disposition home or self-care (01) ==
LOC: MED 21:53
DX: F19.20 Other psychoactive substance dependence, uncomplicated (principal); Z20.822 Contact with and (suspected) exposure to COVID-19; R45.851 Suicidal ideations; Z79.899 Other long term (current) drug therapy
CPT/HCPCS: 36415; 80053; 80305; 85025; 87426; 87635; 99285; C9803; J1885

== ENCOUNTER 2022-11-07 20:58 | Emergency (ER) | payer SELFPAY ==
--- NOTE | 2022-11-07 21:10 | NUR ---
CALED TO TRIAGE, NO ANSWER. CALLED OUTSIDE, NO ANSWER
--- NOTE | 2022-11-07 21:20 | NUR ---
CALLED PTS PHONE, NO ANSWER, MESSAGE LEFT
--- NOTE | 2022-11-07 21:58 | NUR ---
spoke with mayra MTZ in regards to patient information and requesting a wellness check on patient
--- NOTE | 2022-11-07 22:05 | NUR ---
PD on seen
== END 2022-11-07 22:05 | disposition left against medical advice (07) ==
LOC: MED 20:58
DX: R45.851 Suicidal ideations (principal); Z53.21 Procedure and treatment not carried out due to patient leaving prior to being seen by health care provider

== ENCOUNTER 2022-11-10 21:58 | Emergency (ER) | payer SELFPAY ==
[~2022-11-10] VITALS: Ht 175.3 cm; Wt 87.5 kg
[2022-11-10 22:21] VITALS: BP 125/91
[2022-11-10 22:25] VITALS: BP 125/91
--- NOTE | 2022-11-10 23:14 | NUR ---
PT TAKEN TO BED 6
--- NOTE | 2022-11-10 23:37 | NUR ---
Dr. Brown examining patient.
--- NOTE | 2022-11-10 23:45 | NUR ---
37 Y/O M PRESENTS WITH LOWER BACK PAIN / WITH PRESSURE XTODAY. PT DENIES ANY NVD OR HEADACHES. PT IS A&OX4, SKIN INTACT, RESPIRATIONS EVEN AND UNLABORED. PMH-PT DENIES NKA
[2022-11-10] MEDS ORDERED: CYCLOBENZAPRINE 10 MG TAB PO ONE (23:55)
[2022-11-10] MEDS ORDERED: KETOROLAC 30 MG/ML VIAL IM ONE (23:55)
[2022-11-10] MEDS ORDERED: NAPR-54 PO (23:58)
[2022-11-10] MEDS ORDERED: CYCL-711 PO (23:58)
--- NOTE | 2022-11-11 00:52 | NUR ---
Patient discharged with v/s stable. Written and verbal after care instructions given and explained. Patient alert, oriented and verbalized understanding of instructions. Ambulatory with steady gait. All questions addressed prior to discharge. ID band removed. Patient advised to follow up with PMD. Rx of CYCLOBENZAPRINE HCI AND NAPROXEN given. Opportunity to ask questions provided and answered.
--- NOTE | 2022-11-11 00:54 | NUR ---
The patient's care was reviewed and supervised by Rachel Enamorado RN.
== END 2022-11-11 00:52 | disposition home or self-care (01) ==
LOC: MED 21:58
DX: S39.012A Strain of muscle, fascia and tendon of lower back, initial encounter (principal); F32.A Depression, unspecified; F41.9 Anxiety disorder, unspecified; X58.XXXA Exposure to other specified factors, initial encounter; Y93.89 Activity, other specified; Y92.89 Other specified places as the place of occurrence of the external cause; Y99.8 Other external cause status
CPT/HCPCS: 96372; 99283; J1885

== ENCOUNTER 2022-12-04 03:10 | Emergency (ER) | payer SELFPAY ==
[~2022-12-04] VITALS: Ht 177.8 cm; Wt 85.7 kg
[~2022-12-04 03:10] MED LIST changes: +CYCL-711 PO; +NAPR-54 PO
[2022-12-04 03:20] VITALS: BP 137/90
--- NOTE | 2022-12-04 03:23 | NUR ---
TO LOBBY A/WBED AMBULATORY
--- NOTE | 2022-12-04 05:30 | NUR ---
PT CALLED IN LOBBY AND OUTSIDE x3 WITH NO ANSWER. PT LWBS
[2022-12-04] MEDS ORDERED: ONDA-188 SL (09:25)
== END 2022-12-04 05:30 | disposition left against medical advice (07) ==
LOC: MED 03:10
DX: R10.84 Generalized abdominal pain (principal); Z53.21 Procedure and treatment not carried out due to patient leaving prior to being seen by health care provider
CPT/HCPCS: 99281

== ENCOUNTER 2022-12-04 06:25 | Emergency (ER) | payer SELFPAY ==
[~2022-12-04] VITALS: Ht 177.8 cm; Wt 85.7 kg
[2022-12-04 06:35] VITALS: BP 104/80
--- NOTE | 2022-12-04 06:35 | NUR ---
TO BED AMBULATORY
[2022-12-04] MEDS ORDERED: ALUMINUM HYD/MAG/SIMETHICONE 30 ML UDC PO ONE (06:55)
[2022-12-04] MEDS ORDERED: KETOROLAC 15 MG/ML VIAL IM ONE (06:55)
[2022-12-04] MEDS ORDERED: ONDANSETRON 4 MG ODT PO ONE (06:55)
--- NOTE | 2022-12-04 07:36 | NUR ---
37/M BIB self from home c/o epigastric pain x last night. Patient A&Ox4, ambulatory, states epigastric pain worsening after meals; reports 8/10, sharp/constant, non-radiating pain. +Nausea without vomiting; pt states "I'm hungry" at this time; denies diarrhea, constipation, fever, chills, dysuria, urinary symptoms. Bed locked in lowest position, side rails x 1. PMH/Sx/Meds: Denies NKDA
[2022-12-04 08:10] LABS: ALBUMIN 3.6 g/dL (3.4-5.0); ANION GAP 11.9 (8-16); CARBON DIOXIDE 28.6 mmol/L (21-32); CREATININE 1.1 mg/dL (0.6-1.3); POTASSIUM 3.5 mmol/L (3.5-5.1); TOTAL BILIRUBIN 0.7 mg/dL (0.0-1.0)
--- NOTE | 2022-12-04 08:31 | NUR ---
Patient resting on right side in semi-fowlers position. States + relief to pain and nausea; 1/10 pain at this time. All pt needs met.
[2022-12-04 09:20] LABS: BASOPHILS % (AUTO) 0.4 % (0.0-2.0); EOSINOPHILS # (AUTO) 0.3 K/uL (0-0.4); EOSINOPHILS % (AUTO) 4.7 % (0.0-4.0); HEMOGLOBIN 13.8 g/dL (12.0-18.0); LYMPHOCYTES # (AUTO) 1.4 K/uL (2.0-11.5); LYMPHOCYTES % (AUTO) 23.3 % (20.5-51.1); MEAN CORPUSCULAR HEMOGLOBIN 32 pg (27-31); MEAN CORPUSCULAR HGB CONC 34 g/dL (33-37); MEAN CORPUSCULAR VOLUME 95.6 fL (80-94); MONOCYTES # (AUTO) 0.6 K/uL (0.8-1.0); MONOCYTES % (AUTO) 9.7 % (1.7-9.3); NEUTROPHILS # (AUTO) 3.7 K/uL (1.8-7.7); NEUTROPHILS % (AUTO) 61.9 % (42.2-75.2); PLATELET COUNT (AUTO) 213 K/uL (140-450); RED BLOOD CELL COUNT(AUTO) 4.28 MIL/uL (4.20-6.10); RED CELL DISTRIBUTION WIDTH 12.6 % (11.6-13.7); WHITE BLOOD COUNT (AUTO) 6.1 K/uL (4.8-10.8)
[2022-12-04 09:23] VITALS: BP 106/74
--- NOTE | 2022-12-04 09:23 | NUR ---
[place] given per request. Pt resting in right side with both eyes closed; semi-fowlers position. Relief to pain 7/10 at this time. Denies nausea. All pt needs met. VSS. RR even/unlabored.
[2022-12-04] MEDS ORDERED: ONDA-188 SL (09:25)
--- NOTE | 2022-12-04 09:37 | NUR ---
Patient discharged with v/s stable. Written and verbal after care instructions FOR ABD PAIN given and explained. Patient alert, oriented and verbalized understanding of instructions. Ambulatory with steady gait. All questions addressed prior to discharge. ID band removed. Patient advised to follow up with PMD. Rx of ZOFRAN ODT given. Opportunity to ask questions provided and answered.
== END 2022-12-04 09:37 | disposition home or self-care (01) ==
LOC: MED 06:25
DX: R10.13 Epigastric pain (principal); R11.0 Nausea; Z79.899 Other long term (current) drug therapy
CPT/HCPCS: 36415; 80053; 83690; 85025; 96372; 99283; J1885; Q0162

== ENCOUNTER 2023-01-17 21:23 | Emergency (ER) | payer MEDICAID ==
[~2023-01-17] VITALS: Ht 175.3 cm; Wt 85.7 kg
[2023-01-17 21:40] VITALS: BP 122/71; PULSE 86; RESP 16; TEMP 98.6; O2SAT 95
--- NOTE | 2023-01-17 21:45 | NUR ---
TO BED AMBULATORY
[2023-01-17 22:44] LABS: BASOPHILS % (AUTO) 0.5 % (0.0-2.0); EOSINOPHILS # (AUTO) 0.4 K/uL (0-0.4); EOSINOPHILS % (AUTO) 6.5 % (0.0-4.0); HEMATOCRIT 38.5 % (36-52); HEMOGLOBIN 13.2 g/dL (12.0-18.0); LYMPHOCYTES # (AUTO) 1.8 K/uL (2.0-11.5); LYMPHOCYTES % (AUTO) 30.2 % (20.5-51.1); MEAN CORPUSCULAR HEMOGLOBIN 32 pg (27-31); MEAN CORPUSCULAR HGB CONC 34 g/dL (33-37); MEAN CORPUSCULAR VOLUME 93.8 fL (80-94); MONOCYTES # (AUTO) 0.4 K/uL (0.8-1.0); MONOCYTES % (AUTO) 7.4 % (1.7-9.3); NEUTROPHILS # (AUTO) 3.3 K/uL (1.8-7.7); NEUTROPHILS % (AUTO) 55.4 % (42.2-75.2); PLATELET COUNT (AUTO) 229 K/uL (140-450); RED BLOOD CELL COUNT(AUTO) 4.11 MIL/uL (4.20-6.10); RED CELL DISTRIBUTION WIDTH 12.6 % (11.6-13.7)
[2023-01-17 22:56] LABS: ALBUMIN 3.5 g/dL (3.4-5.0); ANION GAP 12.1 (8-16); ASPARTATE AMINOTRANSFERASE 28 U/L (15-37); CARBON DIOXIDE 29.9 mmol/L (21-32); CHLORIDE 106 mmol/L (98-107); CREATININE 1.3 mg/dL (0.6-1.3); GFR ARICAN-AMERICAN 79 mL/min (>90); GLUCOSE 105 mg/dL (74-106); SALICYLATE 3.1 mg/dL (2.8-20.0); SODIUM SERUM 144 mmol/L (136-145); TOTAL BILIRUBIN 0.5 mg/dL (0.0-1.0); UREA NITROGEN, BLOOD 12 mg/dL (7-18)
[2023-01-17 23:00] LABS: ACETAMINOPHEN < 0.5 ug/ml (10-30)
--- NOTE | 2023-01-17 23:13 | NUR ---
Patient being evaluated by physician at bedside.
[2023-01-18 01:27] LABS: APPEARANCE,URINE CLEAR (CLEAR); BILIRUBIN,URINE NEGATIVE (NEGATIVE); BLOOD, URINE NEGATIVE (NEGATIVE); COLOR,URINE YELLOW (YELLOW); LEUKOCYTE ESTERASE ,URINE 1+ (NEGATIVE); NITRITE, URINE NEGATIVE (NEGATIVE); UGLUCOSE NEGATIVE (NEGATIVE)
[2023-01-18 01:38] LABS: BARBITURATE, URINE NEGATIVE ng/ml (NEG <=200); BENZODIAZEPINE, URINE NEGATIVE ng/mL (NEG <=200); CANNABINOID, URINE POSITIVE ng/mL (NEG <=50); COCAINE, URINE NEGATIVE ng/mL (NEG <=300); OPIATE, URINE NEGATIVE ng/mL (NEG <=2000); PHENCYCLIDINE SCREEN,URINE NEGATIVE ng/mL (NEG <=25)
[2023-01-18 01:39] LABS: RBC,URINE 0-5 /HPF (0-5)
[2023-01-18] MEDS ORDERED: cefTRIAXone 1,000 MG VIAL ONE (05:25)
[2023-01-18] MEDS ORDERED: cefTRIAXone 1,000 MG in LIDOCAINE MPF 1% 2.1 ML IM ONE (05:25)
[2023-01-18] MEDS ORDERED: LIDOCAINE MPF 1% 5 ML ONE (05:26)
--- NOTE | 2023-01-18 05:59 | NUR ---
COVID SWABS COLLECTED AND SENT.
--- NOTE | 2023-01-18 07:16 | NUR ---
REPORT RECEIVED FROM [facility], CONTINUED PT CARE.
--- NOTE | 2023-01-18 08:41 | NUR ---
PT STANDING NEXT TO BEDSIDE EATING BREAKFAST.
[2023-01-18 09:34] VITALS: O2SAT 95
--- NOTE | 2023-01-18 11:43 | NUR ---
SANDRA FROM [facility] CALLED FOR UPDATE. WILL REACH AN ACCEPTING DR AND CALL BACK WITH UPDATED INFORMATION AND POSIBLE.
[2023-01-18 11:45] VITALS: O2SAT 95
--- NOTE | 2023-01-18 11:58 | NUR ---
Packet faxed to: [facility]
[2023-01-18 13:48] VITALS: O2SAT 95
[2023-01-18 16:03] VITALS: O2SAT 95
--- NOTE | 2023-01-18 17:32 | NUR ---
Patient to be transferred to [facility]. Is being transferred due to 5150 HOLD FOR DTS. Receiving facility has accepting physician DE. RODRIGES. ER physician has signed transfer form. Patient or responsible alliance party has agreed to transfer and signed form. Patient belongings inventoried and will be sent with patient. Copy of nursing notes, lab reports, EKG, Physicians Orders and X-rays to be sent with patient. Report called to SANDRA at receiving facility. [facility] ambulance service has been called for transfer. ETA is 45MIN.
[2023-01-18 17:33] VITALS: BP 128/71; PULSE 79; RESP 15; TEMP 97.5; O2SAT 99
== END 2023-01-18 17:32 ==
LOC: MED 21:23
DX: R45.851 Suicidal ideations (principal); Z20.822 Contact with and (suspected) exposure to COVID-19; N39.0 Urinary tract infection, site not specified; Z79.899 Other long term (current) drug therapy
CPT/HCPCS: 36415; 80053; 80305; 81001; 85025; 87086; 87426; 87635; 96372; 99285; C9803; G0480; G0482; J0696; J2001

== ENCOUNTER 2023-02-18 06:30 | Emergency (ER) | payer MEDICAID ==
[~2023-02-18] VITALS: Ht 175.3 cm; Wt 77.1 kg
[~2023-02-18 06:30] MED LIST changes: -BEN10 PO; -CYCL-711 PO; -IBUP-2218 PO; -NAPR-54 PO; -ONDA-188 SL
[2023-02-18 06:41] VITALS: BP 130/76; PULSE 68; RESP 16; TEMP 97.4; O2SAT 100
--- NOTE | 2023-02-18 06:46 | NUR ---
TO LOBBY FOLLOWING TRIAGE
--- NOTE | 2023-02-18 07:54 | NUR ---
PATIENT LEFT WITHOUT BEING SEEN BY DR. GRIDER. NO FURTHER CARE PROVIDED FOR PATIENT.
== END 2023-02-18 06:46 | disposition left against medical advice (07) ==
LOC: MED 06:30
DX: R10.9 Unspecified abdominal pain (principal); Z53.21 Procedure and treatment not carried out due to patient leaving prior to being seen by health care provider
CPT/HCPCS: 99281

== ENCOUNTER 2023-02-23 20:14 | Emergency (ER) | payer MEDICAID ==
[~2023-02-23] VITALS: Ht 175.3 cm; Wt 82.1 kg
[2023-02-23 20:20] VITALS: BP 121/74; PULSE 88; RESP 17; TEMP 97.6; O2SAT 96
[2023-02-23 21:32] LABS: BASOPHILS % (AUTO) 0.7 % (0.0-2.0); EOSINOPHILS # (AUTO) 0.2 K/uL (0-0.4); EOSINOPHILS % (AUTO) 3.7 % (0.0-4.0); HEMATOCRIT 39.9 % (36-52); HEMOGLOBIN 13.3 g/dL (12.0-18.0); LYMPHOCYTES # (AUTO) 1.2 K/uL (2.0-11.5); LYMPHOCYTES % (AUTO) 20.8 % (20.5-51.1); MEAN CORPUSCULAR HEMOGLOBIN 32 pg (27-31); MEAN CORPUSCULAR HGB CONC 33 g/dL (33-37); MEAN CORPUSCULAR VOLUME 95.9 fL (80-94); MONOCYTES # (AUTO) 0.4 K/uL (0.8-1.0); MONOCYTES % (AUTO) 6.9 % (1.7-9.3); NEUTROPHILS % (AUTO) 67.9 % (42.2-75.2); PLATELET COUNT (AUTO) 212 K/uL (140-450); RED BLOOD CELL COUNT(AUTO) 4.16 MIL/uL (4.20-6.10); RED CELL DISTRIBUTION WIDTH 12.7 % (11.6-13.7); WHITE BLOOD COUNT (AUTO) 5.9 K/uL (4.8-10.8)
[2023-02-23 21:53] LABS: ALANINE AMINOTRANSFERASE 32 U/L (12-78); ALBUMIN 3.1 g/dL (3.4-5.0); ALKALINE PHOSPHATASE 68 U/L (50-136); ANION GAP 10.4 (8-16); ASPARTATE AMINOTRANSFERASE 32 U/L (15-37); CALCIUM 8.3 mg/dL (8.5-10.1); CARBON DIOXIDE 29.3 mmol/L (21-32); CHLORIDE 106 mmol/L (98-107); CREATININE 1.4 mg/dL (0.6-1.3); GFR ARICAN-AMERICAN 73 mL/min (>90); GFR NON ARICAN-AMERICAN 60 mL/min (>90); GLUCOSE 129 mg/dL (74-106); POTASSIUM 3.7 mmol/L (3.5-5.1); SODIUM SERUM 142 mmol/L (136-145); TOTAL BILIRUBIN 0.5 mg/dL (0.0-1.0); TOTAL PROTEIN, SERUM 6.3 g/dL (6.4-8.2); UREA NITROGEN, BLOOD 9 mg/dL (7-18)
[2023-02-23] MEDS ORDERED: NACL 0.9% 1,000 ML IV ONE (22:25)
[2023-02-24 00:14] VITALS: BP 114/68; PULSE 73; RESP 14; TEMP 97.6; O2SAT 98
== END 2023-02-24 00:12 | disposition home or self-care (01) ==
LOC: MED 20:14
DX: R07.9 Chest pain, unspecified (principal); F17.210 Nicotine dependence, cigarettes, uncomplicated; Z71.6 Tobacco abuse counseling; Z79.899 Other long term (current) drug therapy
CPT/HCPCS: 36415; 71045; 80053; 84484; 85025; 93005; 96360; 99285; J7030

== ENCOUNTER 2023-03-11 07:26 | Emergency (ER) | payer MEDICAID ==
[~2023-03-11] VITALS: Ht 175.3 cm; Wt 85.7 kg
[2023-03-11 07:33] VITALS: BP 100/51; PULSE 78; RESP 18; TEMP 98.9; O2SAT 97
[2023-03-11] MEDS ORDERED: KETOROLAC 30 MG/ML VIAL IM ONE (07:55)
[2023-03-11 07:57] VITALS: O2SAT 97
[2023-03-11] MEDS ORDERED: NAPR-1704 PO (08:42)
[2023-03-11 08:58] VITALS: BP 133/75; PULSE 70; RESP 17; TEMP 97.8; O2SAT 95
== END 2023-03-11 08:58 | disposition home or self-care (01) ==
LOC: MED 07:26
DX: S46.212A Strain of muscle, fascia and tendon of other parts of biceps, left arm, initial encounter (principal); Z79.899 Other long term (current) drug therapy; X50.9XXA Other and unspecified overexertion or strenuous movements or postures, initial encounter; Y93.89 Activity, other specified; Y92.89 Other specified places as the place of occurrence of the external cause; Y99.8 Other external cause status
CPT/HCPCS: 73060; 96372; 99283; J1885

== ENCOUNTER 2023-04-16 03:35 | Emergency (ER) | payer MEDICAID, OTHER ==
[~2023-04-16] VITALS: Ht 177.8 cm; Wt 86.2 kg
[~2023-04-16 03:35] MED LIST changes: +NAPR-1704 PO
[2023-04-16 03:50] VITALS: BP 144/80; PULSE 90; RESP 18; TEMP 98; O2SAT 98
[2023-04-16] MEDS ORDERED: KETOROLAC 30 MG/ML VIAL IVP ONE (04:55)
[2023-04-16] MEDS ORDERED: KETOROLAC 30 MG/ML VIAL IM ONE (05:00)
[2023-04-16] MEDS ORDERED: LIDOCAINE 5% 1 EA PATCH TP ONE (05:00)
[2023-04-16] MEDS ORDERED: LID5T TP (05:01)
[2023-04-16] MEDS ORDERED: CYCL-711 PO (05:01)
[2023-04-16] MEDS ORDERED: IBUP-2213 PO (05:01)
[2023-04-16 05:45] VITALS: BP 144/80; PULSE 90; RESP 18; TEMP 98; O2SAT 98
== END 2023-04-16 05:45 | disposition home or self-care (01) ==
LOC: MED 03:35
DX: S43.402A Unspecified sprain of left shoulder joint, initial encounter (principal); Z79.899 Other long term (current) drug therapy; Y04.2XXA Assault by strike against or bumped into by another person, initial encounter; Y93.89 Activity, other specified; Y92.89 Other specified places as the place of occurrence of the external cause; Y99.0 Civilian activity done for income or pay
CPT/HCPCS: 73030; 96372; 99283; J1885

== ENCOUNTER 2023-04-23 00:20 | Emergency (ER) | payer OTHER ==
[~2023-04-23] VITALS: Ht 175.3 cm; Wt 81.6 kg
[~2023-04-23 00:20] MED LIST changes: +CYCL-711 PO; +IBUP-2213 PO; +LID5T TP
[2023-04-23 00:25] VITALS: BP 144/78; PULSE 97; RESP 20; TEMP 97.4; O2SAT 99
[2023-04-23] MEDS ORDERED: MELO-176 PO ×2 (06:27→07:47)
== END 2023-04-23 02:15 | disposition left against medical advice (07) ==
LOC: MED 00:20
DX: M25.512 Pain in left shoulder (principal); Z53.21 Procedure and treatment not carried out due to patient leaving prior to being seen by health care provider
CPT/HCPCS: 93005; 99281

== ENCOUNTER 2023-04-23 05:40 | Emergency (ER) | payer OTHER ==
[~2023-04-23] VITALS: Ht 182.9 cm; Wt 83.9 kg
[2023-04-23 05:43] VITALS: BP 148/82; PULSE 88; RESP 16; TEMP 97.4; O2SAT 97
[2023-04-23] MEDS ORDERED: MELO-176 PO ×2 (06:27→07:47)
[2023-04-23] MEDS ORDERED: KETOROLAC 60 MG/2 ML VIAL IM ONE (06:30)
[2023-04-23 07:07] VITALS: BP 96/56; PULSE 63; RESP 18; TEMP 97.1; O2SAT 96
== END 2023-04-23 07:07 | disposition home or self-care (01) ==
LOC: MED 05:40
DX: M25.512 Pain in left shoulder (principal); R07.9 Chest pain, unspecified; Z79.899 Other long term (current) drug therapy
CPT/HCPCS: 96372; 99283; J1885

== ENCOUNTER 2023-04-24 23:41 | Emergency (ER) | payer OTHER ==
[~2023-04-24] VITALS: Ht 177.8 cm; Wt 81.6 kg
[~2023-04-24 23:41] MED LIST changes: +MELO-176 PO
[2023-04-24 23:43] VITALS: BP 148/83; PULSE 88; RESP 16; TEMP 97.4; O2SAT 100
[2023-04-25] MEDS ORDERED: KETOROLAC 30 MG/ML VIAL IM ONE (00:45)
[2023-04-25 00:56] VITALS: BP 148/83; PULSE 88; RESP 16; TEMP 97.4; O2SAT 100
== END 2023-04-25 00:55 | disposition home or self-care (01) ==
LOC: MED 23:41
DX: S49.92XA Unspecified injury of left shoulder and upper arm, initial encounter (principal); Z79.899 Other long term (current) drug therapy; Z79.1 Long term (current) use of non-steroidal anti-inflammatories (NSAID); X58.XXXA Exposure to other specified factors, initial encounter; Y92.89 Other specified places as the place of occurrence of the external cause; Y93.89 Activity, other specified; Y99.8 Other external cause status
CPT/HCPCS: 96372; 99283; J1885

== ENCOUNTER 2023-04-25 19:46 | Emergency (ER) | payer OTHER ==
[~2023-04-25] VITALS: Ht 180.3 cm; Wt 74.8 kg
[2023-04-25 19:59] VITALS: BP 148/73; PULSE 88; RESP 16; TEMP 97.4; O2SAT 98
== END 2023-04-25 23:29 | disposition left against medical advice (07) ==
LOC: MED 19:46
DX: M25.512 Pain in left shoulder (principal); Z53.21 Procedure and treatment not carried out due to patient leaving prior to being seen by health care provider
CPT/HCPCS: 99281

== ENCOUNTER 2023-04-26 01:00 | Emergency (ER) | payer OTHER ==
[~2023-04-26] VITALS: Ht 180.3 cm; Wt 74.8 kg
[2023-04-26 01:07] VITALS: BP 148/76; PULSE 88; RESP 16; TEMP 97.4; O2SAT 100
[2023-04-26] MEDS ORDERED: ACETAMINOPHEN 325 MG TAB PO ONE (04:35)
[2023-04-26] MEDS ORDERED: IBUPROFEN 600 MG TAB PO ONE (04:35)
[2023-04-26 05:02] VITALS: BP 148/76; PULSE 88; RESP 16; TEMP 97.4; O2SAT 100
== END 2023-04-26 05:02 | disposition home or self-care (01) ==
LOC: MED 01:00
DX: S46.912A Strain of unspecified muscle, fascia and tendon at shoulder and upper arm level, left arm, initial encounter (principal); Z79.899 Other long term (current) drug therapy; Z79.1 Long term (current) use of non-steroidal anti-inflammatories (NSAID); X58.XXXA Exposure to other specified factors, initial encounter; Y92.89 Other specified places as the place of occurrence of the external cause; Y93.89 Activity, other specified; Y99.8 Other external cause status
CPT/HCPCS: 99283

== ENCOUNTER 2023-05-04 01:10 | Emergency (ER) | payer OTHER ==
[~2023-05-04] VITALS: Ht 175.3 cm; Wt 81.6 kg
[2023-05-04 01:31] VITALS: BP 112/65; PULSE 75; RESP 20; TEMP 98; O2SAT 98
[2023-05-04] MEDS ORDERED: KETOROLAC 60 MG/2 ML VIAL IM ONE (03:55)
[2023-05-04] MEDS ORDERED: IBUP-2213 PO (03:58)
[2023-05-04 04:10] VITALS: BP 114/70; PULSE 75; RESP 20; TEMP 98.4; O2SAT 98
== END 2023-05-04 04:07 | disposition home or self-care (01) ==
LOC: MED 01:10
DX: M25.512 Pain in left shoulder (principal); Z79.899 Other long term (current) drug therapy
CPT/HCPCS: 96372; 99283; J1885

== ENCOUNTER 2023-05-08 12:20 | Emergency (ER) | payer OTHER ==
[~2023-05-08] VITALS: Ht 175.3 cm; Wt 78.5 kg
[2023-05-08 13:00] VITALS: BP 135/72; PULSE 92; RESP 18; TEMP 98.3; O2SAT 98
[2023-05-08] MEDS ORDERED: DICL100G32 TP (13:29)
[2023-05-08] MEDS ORDERED: NAPR-1704 PO (13:29)
[2023-05-08] MEDS ORDERED: KETOROLAC 30 MG/ML VIAL IM ONE (13:30)
== END 2023-05-08 13:48 | disposition home or self-care (01) ==
LOC: MED 12:20
DX: M19.012 Primary osteoarthritis, left shoulder (principal); Z79.899 Other long term (current) drug therapy; Z79.1 Long term (current) use of non-steroidal anti-inflammatories (NSAID)
CPT/HCPCS: 96372; 99283; J1885

== ENCOUNTER 2023-05-16 08:07 | Emergency (ER) | payer OTHER ==
[~2023-05-16] VITALS: Ht 175.3 cm; Wt 81.6 kg
[~2023-05-16 08:07] MED LIST changes: +DICL100G32 TP
[2023-05-16 08:18] VITALS: BP 11/63; PULSE 72; RESP 14; TEMP 98.7; O2SAT 98
[2023-05-16] MEDS ORDERED: KETOROLAC 30 MG/ML VIAL IVP ONE (08:35)
[2023-05-16 08:57] LABS: BASOPHILS # (AUTO) 0.1 K/uL (0.00-0.22); BASOPHILS % (AUTO) 1.3 % (0.0-2.0); EOSINOPHILS # (AUTO) 0.2 K/uL (0-0.4); EOSINOPHILS % (AUTO) 3.9 % (0.0-4.0); HEMATOCRIT 43.6 % (36-52); HEMOGLOBIN 14.4 g/dL (12.0-18.0); LYMPHOCYTES # (AUTO) 1.3 K/uL (2.0-11.5); LYMPHOCYTES % (AUTO) 28.8 % (20.5-51.1); MEAN CORPUSCULAR HEMOGLOBIN 32 pg (27-31); MEAN CORPUSCULAR HGB CONC 33 g/dL (33-37); MEAN CORPUSCULAR VOLUME 96.7 fL (80-94); MONOCYTES # (AUTO) 0.3 K/uL (0.8-1.0); MONOCYTES % (AUTO) 6.5 % (1.7-9.3); NEUTROPHILS # (AUTO) 2.7 K/uL (1.8-7.7); NEUTROPHILS % (AUTO) 59.5 % (42.2-75.2); PLATELET COUNT (AUTO) 269 K/uL (140-450); RED BLOOD CELL COUNT(AUTO) 4.51 MIL/uL (4.20-6.10); RED CELL DISTRIBUTION WIDTH 13.1 % (11.6-13.7); WHITE BLOOD COUNT (AUTO) 4.5 K/uL (4.8-10.8)
[2023-05-16 09:02] LABS: ALBUMIN 3.4 g/dL (3.4-5.0); ANION GAP 10.4 (8-16); CALCIUM 8.7 mg/dL (8.5-10.1); CARBON DIOXIDE 29.7 mmol/L (21-32); POTASSIUM 4.1 mmol/L (3.5-5.1); TOTAL BILIRUBIN 0.3 mg/dL (0.0-1.0); TOTAL PROTEIN, SERUM 6.6 g/dL (6.4-8.2)
[2023-05-16 09:05] LABS: FLU A ANTIGEN negative (NEGATIVE); FLU B ANTIGEN negative (NEGATIVE)
[2023-05-16] MEDS ORDERED: IBUP-2213 PO (09:32)
[2023-05-16 09:45] VITALS: BP 117/82; PULSE 87; RESP 11; TEMP 96.7; O2SAT 97
[2023-05-16] MEDS ORDERED: DIPH25TA53 PO (18:43)
== END 2023-05-16 09:43 | disposition home or self-care (01) ==
LOC: MED 08:07
DX: R07.9 Chest pain, unspecified (principal); Z20.822 Contact with and (suspected) exposure to COVID-19; Z88.8 Allergy status to other drugs, medicaments and biological substances; Z79.899 Other long term (current) drug therapy
CPT/HCPCS: 36415; 71045; 80053; 83880; 84484; 85025; 87426; 87804; 93005; 96374; 99285; J1885; Q0092

== ENCOUNTER 2023-05-16 18:15 | Emergency (ER) | payer OTHER ==
[~2023-05-16] VITALS: Ht 177.8 cm; Wt 85.7 kg
[2023-05-16 18:29] VITALS: BP 128/58; PULSE 97; RESP 14; TEMP 99; O2SAT 96
[2023-05-16] MEDS ORDERED: DIPH25TA53 PO (18:43)
[2023-05-16 19:03] VITALS: BP 128/58; PULSE 97; RESP 14; TEMP 99; O2SAT 96
== END 2023-05-16 19:03 | disposition home or self-care (01) ==
LOC: MED 18:15
DX: R68.84 Jaw pain (principal); Z88.8 Allergy status to other drugs, medicaments and biological substances; Z79.899 Other long term (current) drug therapy
CPT/HCPCS: 99282; Q0163

== ENCOUNTER 2023-05-24 22:16 | Emergency (ER) | payer OTHER ==
[~2023-05-24] VITALS: Ht 177.8 cm; Wt 81.6 kg
[~2023-05-24 22:16] MED LIST changes: +DIPH25TA53 PO
[2023-05-24 22:26] VITALS: BP 125/61; PULSE 88; RESP 16; TEMP 97.4; O2SAT 96
[2023-05-24 23:55] LABS: BASOPHILS # (AUTO) 0.1 K/uL (0.00-0.22); BASOPHILS % (AUTO) 1.4 % (0.0-2.0); EOSINOPHILS # (AUTO) 0.2 K/uL (0-0.4); EOSINOPHILS % (AUTO) 3.4 % (0.0-4.0); HEMATOCRIT 38.1 % (36-52); HEMOGLOBIN 12.6 g/dL (12.0-18.0); LYMPHOCYTES # (AUTO) 2.2 K/uL (2.0-11.5); LYMPHOCYTES % (AUTO) 40.1 % (20.5-51.1); MEAN CORPUSCULAR HEMOGLOBIN 32 pg (27-31); MEAN CORPUSCULAR HGB CONC 33 g/dL (33-37); MEAN CORPUSCULAR VOLUME 96.7 fL (80-94); MONOCYTES # (AUTO) 0.3 K/uL (0.8-1.0); MONOCYTES % (AUTO) 6.1 % (1.7-9.3); NEUTROPHILS # (AUTO) 2.7 K/uL (1.8-7.7); PLATELET COUNT (AUTO) 238 K/uL (140-450); RED BLOOD CELL COUNT(AUTO) 3.94 MIL/uL (4.20-6.10); RED CELL DISTRIBUTION WIDTH 12.7 % (11.6-13.7); WHITE BLOOD COUNT (AUTO) 5.4 K/uL (4.8-10.8)
[2023-05-25 00:14] LABS: ALANINE AMINOTRANSFERASE 36 U/L (12-78); ALBUMIN 3.1 g/dL (3.4-5.0); ALCOHOL, BLOOD < 3 mg/dL (<10); ALKALINE PHOSPHATASE 73 U/L (50-136); ANION GAP 6.7 (8-16); ASPARTATE AMINOTRANSFERASE 27 U/L (15-37); CALCIUM 8.6 mg/dL (8.5-10.1); CARBON DIOXIDE 32.2 mmol/L (21-32); CHLORIDE 105 mmol/L (98-107); CREATININE 1.1 mg/dL (0.6-1.3); GFR ARICAN-AMERICAN 96 mL/min (>90); GFR NON ARICAN-AMERICAN 79 mL/min (>90); GLUCOSE 102 mg/dL (74-106); POTASSIUM 3.9 mmol/L (3.5-5.1); SALICYLATE < 2.8 mg/dL (2.8-20.0); SODIUM SERUM 140 mmol/L (136-145); TOTAL BILIRUBIN 0.4 mg/dL (0.0-1.0); TOTAL PROTEIN, SERUM 6.3 g/dL (6.4-8.2); UREA NITROGEN, BLOOD 9 mg/dL (7-18)
[2023-05-25 00:15] LABS: ACETAMINOPHEN < 0.5 ug/ml (10-30)
[2023-05-25 04:34] VITALS: O2SAT 99
[2023-05-25 08:10] VITALS: BP 112/62; PULSE 80; RESP 15; TEMP 98
[2023-05-25 08:42] VITALS: O2SAT 99
[2023-05-25 11:23] LABS: AMPHETAMINE, URINE NEGATIVE ng/ml (NEG <=1000); BARBITURATE, URINE NEGATIVE ng/ml (NEG <=200); BENZODIAZEPINE, URINE NEGATIVE ng/mL (NEG <=200)
[2023-05-25 11:24] LABS: CANNABINOID, URINE POSITIVE ng/mL (NEG <=50); COCAINE, URINE NEGATIVE ng/mL (NEG <=300); OPIATE, URINE NEGATIVE ng/mL (NEG <=2000); PHENCYCLIDINE SCREEN,URINE NEGATIVE ng/mL (NEG <=25)
== END 2023-05-25 10:45 | disposition home or self-care (01) ==
LOC: MED 22:16
DX: R45.851 Suicidal ideations (principal); Z20.822 Contact with and (suspected) exposure to COVID-19; F32.A Depression, unspecified; F17.210 Nicotine dependence, cigarettes, uncomplicated; Z88.8 Allergy status to other drugs, medicaments and biological substances; Z79.899 Other long term (current) drug therapy
CPT/HCPCS: 36415; 80053; 80305; 85025; 87426; 87635; 99285; G0480; G0482; C9803-CS

== ENCOUNTER 2023-06-22 12:13 | Emergency (ER) | payer OTHER ==
[~2023-06-22] VITALS: Ht 175.3 cm; Wt 81.6 kg
[2023-06-22 12:36] VITALS: BP 101/60; PULSE 75; RESP 18; TEMP 97.7; O2SAT 95
[2023-06-22] MEDS ORDERED: ACETAMINOPHEN 325 MG TAB PO ONE (14:45)
[2023-06-22] MEDS ORDERED: ONDANSETRON 4 MG ODT PO ONE (14:50)
[2023-06-22] MEDS ORDERED: ONDA-188 SL (14:51)
[2023-06-22] MEDS ORDERED: ACET-10509 PO (14:51)
[2023-06-22 15:13] VITALS: O2SAT 95
[2023-06-22 15:38] VITALS: BP 101/60; PULSE 75; RESP 18; TEMP 97.7; O2SAT 95
== END 2023-06-22 15:38 | disposition home or self-care (01) ==
LOC: MED 12:13
DX: R51.9 Headache, unspecified (principal); R11.2 Nausea with vomiting, unspecified; Z88.8 Allergy status to other drugs, medicaments and biological substances; Z79.899 Other long term (current) drug therapy
CPT/HCPCS: 99283; Q0162

== ENCOUNTER 2023-06-27 19:48 | Emergency (ER) | payer OTHER ==
[~2023-06-27 19:48] MED LIST changes: +ACET-10509 PO; +ONDA-188 SL
== END 2023-06-27 20:20 | disposition left against medical advice (07) ==
LOC: MED 19:48
DX: Z53.21 Procedure and treatment not carried out due to patient leaving prior to being seen by health care provider (principal)

== ENCOUNTER 2023-07-06 01:35 | Emergency (ER) | payer OTHER ==
[~2023-07-06] VITALS: Ht 175.3 cm; Wt 81.6 kg
[2023-07-06 02:04] VITALS: BP 128/81; PULSE 88; RESP 18; TEMP 97.8; O2SAT 98
[2023-07-06] MEDS ORDERED: IBUPROFEN 600 MG TAB PO ONE (02:40)
[2023-07-06 03:20] LABS: BASOPHILS # (AUTO) 0.1 K/uL (0.00-0.22); EOSINOPHILS # (AUTO) 0.2 K/uL (0-0.4); EOSINOPHILS % (AUTO) 2.7 % (0.0-4.0); HEMATOCRIT 44.6 % (36-52); HEMOGLOBIN 15.3 g/dL (12.0-18.0); LYMPHOCYTES # (AUTO) 1.9 K/uL (2.0-11.5); LYMPHOCYTES % (AUTO) 21.7 % (20.5-51.1); MEAN CORPUSCULAR HEMOGLOBIN 33 pg (27-31); MEAN CORPUSCULAR HGB CONC 34 g/dL (33-37); MEAN CORPUSCULAR VOLUME 95.9 fL (80-94); MONOCYTES # (AUTO) 0.5 K/uL (0.8-1.0); MONOCYTES % (AUTO) 6.2 % (1.7-9.3); NEUTROPHILS % (AUTO) 68.4 % (42.2-75.2); PLATELET COUNT (AUTO) 290 K/uL (140-450); RED BLOOD CELL COUNT(AUTO) 4.65 MIL/uL (4.20-6.10); RED CELL DISTRIBUTION WIDTH 12.6 % (11.6-13.7); WHITE BLOOD COUNT (AUTO) 8.7 K/uL (4.8-10.8)
[2023-07-06 03:23] LABS: ANION GAP 11.6 (8-16); CALCIUM 9.4 mg/dL (8.5-10.1); CARBON DIOXIDE 33.9 mmol/L (21-32); CREATININE 1.2 mg/dL (0.6-1.3); POTASSIUM 3.5 mmol/L (3.5-5.1)
[2023-07-06] MEDS ORDERED: IBUP-2213 PO (03:43)
[2023-07-06 04:00] VITALS: BP 128/81; PULSE 88; RESP 18; TEMP 97.8; O2SAT 98
[2023-07-07] MEDS ORDERED: IBUP-2213 PO (13:42)
[2023-07-07] MEDS ORDERED: BPM/-9 PO (13:42)
== END 2023-07-06 04:00 | disposition home or self-care (01) ==
LOC: MED 01:35
DX: R07.89 Other chest pain (principal); Z88.8 Allergy status to other drugs, medicaments and biological substances; Z79.899 Other long term (current) drug therapy
CPT/HCPCS: 36415; 71045; 80048; 84484; 85025; 93005; 99285

== ENCOUNTER 2023-07-07 12:35 | Emergency (ER) | payer OTHER ==
[~2023-07-07] VITALS: Ht 175.3 cm; Wt 85.7 kg
[2023-07-07 13:02] VITALS: BP 111/65; PULSE 82; RESP 14; TEMP 99.4; O2SAT 93
[2023-07-07] MEDS ORDERED: IBUPROFEN 600 MG TAB PO ONE (13:40)
[2023-07-07] MEDS ORDERED: IBUP-2213 PO (13:42)
[2023-07-07] MEDS ORDERED: BPM/-9 PO (13:42)
[2023-07-07 14:12] VITALS: BP 112/60; PULSE 90; RESP 16; TEMP 98.7; O2SAT 97
[2023-07-07 15:03] LABS: FLU A ANTIGEN negative (NEGATIVE); FLU B ANTIGEN NEGATIVE (NEGATIVE)
== END 2023-07-07 14:12 | disposition home or self-care (01) ==
LOC: MED 12:35
DX: J06.9 Acute upper respiratory infection, unspecified (principal); Z20.822 Contact with and (suspected) exposure to COVID-19; Z79.899 Other long term (current) drug therapy; Z79.1 Long term (current) use of non-steroidal anti-inflammatories (NSAID); Z88.8 Allergy status to other drugs, medicaments and biological substances
CPT/HCPCS: 99283

== ENCOUNTER 2023-07-16 23:24 | Emergency (ER) | payer OTHER ==
[~2023-07-16] VITALS: Ht 177.8 cm; Wt 85.7 kg
[~2023-07-16 23:24] MED LIST changes: +BPM/-9 PO
[2023-07-16 23:49] VITALS: BP 132/77; PULSE 81; RESP 16; TEMP 97.8; O2SAT 99
[2023-07-17 00:29] LABS: FLU A ANTIGEN negative (NEGATIVE); FLU B ANTIGEN negative (NEGATIVE)
== END 2023-07-17 02:25 | disposition left against medical advice (07) ==
LOC: MED 23:24
DX: R07.9 Chest pain, unspecified (principal); Z20.822 Contact with and (suspected) exposure to COVID-19; Z53.21 Procedure and treatment not carried out due to patient leaving prior to being seen by health care provider
CPT/HCPCS: 93005; 99281

== ENCOUNTER 2023-07-20 02:26 | Emergency (ER) | payer OTHER ==
[~2023-07-20] VITALS: Ht 175.3 cm; Wt 81.6 kg
[2023-07-20 03:30] VITALS: BP 125/83; PULSE 82; RESP 17; TEMP 97.8; O2SAT 97
[2023-07-20 06:35] VITALS: BP 125/83; PULSE 82; RESP 17; TEMP 97.8; O2SAT 97
== END 2023-07-20 06:35 | disposition home or self-care (01) ==
LOC: MED 02:26
DX: R10.9 Unspecified abdominal pain (principal); Z79.899 Other long term (current) drug therapy; Z79.1 Long term (current) use of non-steroidal anti-inflammatories (NSAID); Z88.8 Allergy status to other drugs, medicaments and biological substances
CPT/HCPCS: 99281

== ENCOUNTER 2023-07-23 18:36 | Emergency (ER) | payer OTHER ==
[~2023-07-23] VITALS: Ht 175.3 cm; Wt 81.6 kg
[2023-07-23 19:02] VITALS: BP 110/73; PULSE 90; RESP 20; TEMP 98.9; O2SAT 97
== END 2023-07-23 19:55 | disposition left against medical advice (07) ==
LOC: MED 18:36
DX: M54.50 Low back pain, unspecified (principal); Z53.21 Procedure and treatment not carried out due to patient leaving prior to being seen by health care provider
CPT/HCPCS: 99281

== ENCOUNTER 2023-07-24 21:44 | Emergency (ER) | payer OTHER | END 2023-07-24 22:00 | disposition left against medical advice (07) | LOC: MED 21:44 | DX: R51.9 Headache, unspecified (principal); Z53.21 Procedure and treatment not carried out due to patient leaving prior to being seen by health care provider ==

== ENCOUNTER 2023-07-25 21:30 | Emergency (ER) | payer OTHER ==
[~2023-07-25] VITALS: Ht 170.2 cm; Wt 80.7 kg
[2023-07-25 21:48] VITALS: BP_SYST 129; BP_SYST 137; BP_DIAS 64; BP_DIAS 97; PULSE 78; RESP 20; TEMP 97.8; O2SAT 99
[2023-07-26] MEDS ORDERED: KETOROLAC 60 MG/2 ML VIAL IM ONE (01:10)
[2023-07-26] MEDS ORDERED: NAPR-54 PO (01:14)
[2023-07-26 01:20] VITALS: BP 149/73; PULSE 84; RESP 19; TEMP 97.6; O2SAT 99
== END 2023-07-26 01:20 | disposition home or self-care (01) ==
LOC: MED 21:30
DX: S33.5XXA Sprain of ligaments of lumbar spine, initial encounter (principal); X58.XXXA Exposure to other specified factors, initial encounter; Y93.89 Activity, other specified; Y92.89 Other specified places as the place of occurrence of the external cause; Y99.8 Other external cause status
CPT/HCPCS: 96372; 99283; J1885

== ENCOUNTER 2023-07-28 01:51 | Emergency (ER) | payer OTHER ==
[~2023-07-28] VITALS: Ht 175.3 cm; Wt 75.7 kg
[~2023-07-28 01:51] MED LIST changes: +NAPR-54 PO
[2023-07-28 02:07] VITALS: BP 123/87; PULSE 91; RESP 20; TEMP 98.6; O2SAT 97
[2023-07-28] MEDS ORDERED: ACETAMINOPHEN EXTRA STRENGTH 500 MG TAB PO ONE (04:30)
[2023-07-28 04:37] VITALS: BP 140/56; PULSE 68; RESP 18; TEMP 98; O2SAT 98
== END 2023-07-28 04:37 | disposition home or self-care (01) ==
LOC: MED 01:51
DX: R07.89 Other chest pain (principal); R42 Dizziness and giddiness; Z79.899 Other long term (current) drug therapy; Z79.1 Long term (current) use of non-steroidal anti-inflammatories (NSAID); Z88.8 Allergy status to other drugs, medicaments and biological substances
CPT/HCPCS: 93005; 99283

== ENCOUNTER 2023-08-06 23:20 | Emergency (ER) | payer OTHER ==
[~2023-08-06] VITALS: Ht 182.9 cm; Wt 77.1 kg
[2023-08-06 23:28] VITALS: BP 144/86; PULSE 88; RESP 16; TEMP 97.4; O2SAT 99
== END 2023-08-06 23:41 | disposition left against medical advice (07) ==
LOC: MED 23:20
DX: H92.02 Otalgia, left ear (principal); Z53.21 Procedure and treatment not carried out due to patient leaving prior to being seen by health care provider
CPT/HCPCS: 99281

== ENCOUNTER 2023-10-15 01:05 | Emergency (ER) | payer OTHER ==
[~2023-10-15] VITALS: Ht 175.3 cm; Wt 65.8 kg
[2023-10-15 01:23] VITALS: BP 107/66; PULSE 88; RESP 16; TEMP 98.7; O2SAT 99
[2023-10-15] MEDS ORDERED: KETOROLAC 60 MG/2 ML VIAL IM ONE (01:49)
[2023-10-15] MEDS ORDERED: OMEP40EC24 PO (01:52)
[2023-10-15] MEDS: KETOROLAC 60 MG/2 ML VIAL IM ONE (01:56)
[2023-10-15 02:20] VITALS: BP 107/66; PULSE 88; RESP 16; TEMP 98.7; O2SAT 99
== END 2023-10-15 02:20 | disposition home or self-care (01) ==
LOC: MED 01:05
DX: R10.13 Epigastric pain (principal); Z79.1 Long term (current) use of non-steroidal anti-inflammatories (NSAID); Z88.8 Allergy status to other drugs, medicaments and biological substances; Z79.899 Other long term (current) drug therapy
CPT/HCPCS: 96372; 99283; J1885